=== PATIENT | female | born 1960 | race Caucasian/White ===

== ENCOUNTER 2018-12-25 06:56 | Day surgery (SDC) | payer OTHER ==
[~2018-12-25] VITALS: Ht 160 cm; Wt 70.3 kg
[2018-12-25 07:28] LABS: ANION GAP 18.3 mmol/L (8-16); CALCIUM 7.6 mg/dL (8.5-10.1); CARBON DIOXIDE 21.2 mmol/L (21.0-32.0); POTASSIUM - SERUM 5.5 mmol/L (3.5-5.1)
[2018-12-25 07:30] LABS: INR 1.02 (0.85-1.17); PROTIME 12.9 SECONDS (11.6-15.0)
[2018-12-25 07:48] LABS: BASOPHILS 0.6 % (0-2); HEMATOCRIT 28.4 % (36.0-48.0); HEMOGLOBIN 9.3 g/dL (12-16); IMMATURE GRANULOCYTES 0.3 % (0-5); LYMPHOCYTES 21.8 % (15-50); MCH 29.5 pg (26.0-34.0); MCHC 32.7 g/dL (31.0-37.0); MCV 90.2 fL (80.0-100.0); MONOCYTES 8.5 % (2-11); NEUTROPHILS 65.8 % (40-80); PLATELET COUNT 222 10x3/uL (130-400); RBC 3.15 10x6/uL (4.00-5.40); RDW 13.4 % (11.5-14.5); WBC 6.7 10x3/uL (4.8-10.8)
[2018-12-25] MEDS ORDERED: SODIUM BICARBO650 MG PO (07:59)
[2018-12-25] MEDS ORDERED: FUROSEMIDE40 MG PO (07:59)
[2018-12-25] MEDS ORDERED: AUGMENTIN 875-11 TAB PO (08:00)
[2018-12-25] MEDS ORDERED: LEXAPRO10 MG PO (08:01)
[2018-12-25] MEDS ORDERED: NOVOLOG100 UNIT/1 SC (08:02)
[2018-12-25] MEDS ORDERED: NORVASC10 MG PO (08:03)
[2018-12-25] MEDS ORDERED: CALAN SR240 MG PO (08:03)
[2018-12-25] MEDS ORDERED: COREG25 MG PO (08:04)
[2018-12-25] MEDS ORDERED: LANTUS SOL100 UNIT/1 SC (08:04)
[2018-12-25] MEDS ORDERED: VITAMIN E200 UNI1 PO (08:05)
[2018-12-25] MEDS ORDERED: FISH OIL 1,0001 CA1 PO (08:05)
[2018-12-25] MEDS ORDERED: FERROUS SULFAT325 MG PO (08:06)
[2018-12-25] MEDS ORDERED: BAYER ASPIRIN325 MG PO (08:06)
[2018-12-25] MEDS ORDERED: MELATONIN5 MG PO (08:07)
[2018-12-25] MEDS ORDERED: TYLENOL PM1 TAB PO (08:07)
[2018-12-25 08:27] VITALS: Ht 160 cm; Wt 70.3 kg
[2018-12-25] MEDS ORDERED: HYDROCODON-ACE1 EAC7 PO (15:19)
--- NOTE | 2018-12-25 17:33 | NUR ---
1730 IV REMOVED MEDICATED IM FOR NAUSEA PT TOLERATING FEW ICE CHIPS. [address] HOME
--- NOTE | 2018-12-25 18:57 | NUR ---
[address] CUEVA IN ROOM WITH PT.
--- NOTE | 2018-12-28 08:28 | OP ---
PATIENT NAME: CHARITY VOGEL MEDICAL RECORD: [id number] :58 [facility] DATE: SURGEON: BRAN CUEVA MD DATE OF OPERATION: 12/25/2018 REFERRED BY: Belle Ramachandran MD PREOPERATIVE DIAGNOSIS: Chronic kidney disease stage V and also insulin-dependent or type 1 diabetes with chronic kidney disease and essential hypertension. OPERATION PERFORMED: Laparoscopic implantation of peritoneal dialysis catheter with lysis of adhesions and open repair of umbilical hernia with mesh. Additional operation also included creation of a left brachiocephalic arterial venous fistula. SURGEON: Bran Cueva MD ANESTHESIA: General endotracheal per UNDERWEAR HEMMER. PREOPERATIVE NOTE: Ms. Vogel is a 58-year-old white female patient from [facility] with chronic kidney disease due to diabetes and hypertension. She will need to begin dialysis since she was referred to me by Dr. Belle Ramachandran for implantation of a peritoneal dialysis catheter as well as creation of a fistula in her arm. She hopes to be able to do home peritoneal dialysis in part because she lives a considerable distance from closest dialysis unit. She has had vein mapping done as an outpatient and on my examination has adequate veins in the left arm to go ahead with probably a brachiocephalic although she has an excellent vein at the wrist, but the limiting factor there may be the radial artery. She has had 2 prior C-sections and a hysterectomy. No other abdominal operations. DESCRIPTION OF PROCEDURE: Under general endotracheal anesthesia, the patient was placed in supine position, prepped and draped in sterile manner. I applied a [place] drain as a proximal venous tourniquet and used nitroglycerin topically on the arm and forearm. I examined her with Duplex ultrasound and found that the cephalic and basilic veins in the upper arm were quite good sized. Brachial artery at the level of the elbow was normal sized and appeared to be free of at least severe calcifications or atherosclerotic change. The cephalic vein at the wrist and all the way up to the antecubital space looked great. However, the radial artery was small and exhibited calcifications in the wall, so that I did not think it would be suitable to do a radiocephalic fistula in her case. I made a transverse antecubital incision and exposed the median cubital and median antebrachial veins and the cubital vein to the basilic. I mobilized the median cubital vein to the cephalic and eventually ligated it and divided it immediately proximal to the basilic draining vein. It was bevelled and flushed with heparinized saline and clamped. The brachial artery was exposed and dissected down distal to its bifurcation. There was considerable atherosclerotic plaque in the proximal radial artery and in the proximal ulnar artery and I elected to do the procedure in the brachial artery above that. The artery was controlled with Silastic loops and occluded and the artery was opened and flushed proximally and distally with heparinized saline. The vein was then OPERATIVE REPORT [id number] CHARITY VOGEL anastomosed to it in the vein to side of artery done with continuous running 7-0 Prolene. When that was completed and the occluding loops and clamps were released, excellent flow was established within the fistula and the suture line was hemostatic. There was excellent pulsatile Doppler flow in the radial artery at the wrist as well and in the cephalic vein in the upper arm. The wound was irrigated with saline and closed with interrupted inverted 3-0 Vicryl and running intracuticular 4-0 Stratafix and Dermabond glue and was dressed with Maxorb Ag, Tegaderm, and Cavilon skin prep. The patient did have a regional nerve block in addition to general anesthesia. I will plan postoperatively for her to go home in a sling, which she should wear until she regains function in the arm. Certainly, she should take it off tomorrow and not wear for very long as I walked her to maintain good range of motion in her antecubital or at her elbow joint. The patient was then completely reprepped and draped for implantation of the peritoneal catheter. I made an incision in the left upper quadrant and inserted a 5-mm 0-degree laparoscope through an XL Optiview 5-mm port and established pneumoperitoneum with carbon dioxide. I found the patient had adhesions to the anterior abdominal wall and did have a small but significant umbilical hernia, which contained omentum, which I reduced and I divided adhesions with the Harmonic scalpel. It was necessary to mobilize the sigmoid colon from adhesions to the anterior pelvic peritoneum to open up the space for access for our peritoneal catheter. I decided at that point that her hernia repair would be done in open manner hopefully in such a way that her hernia mesh would not in future be exposed to any infection from possible episodic peritonitis. I desufflated the abdomen and measured on her abdomen using the Merit flex neck classic standard adult sized dual cuff coil dialysis catheter and elected to place the catheter on the right side exiting at a site previously marked by peritoneal dialysis nurses at [facility]. I made a vertical incision and carried it down to the anterior rectus sheath. A pursestring suture of 0 Vicryl was placed and a trocar was used to penetrate the rectus sheath and rectus muscle and then created retrorectus preperitoneal tunnel to help guide the new catheter into the pelvis through that, I inserted the Merit classic flexion at catheter and placed the coil in the pelvis in a good open area. I was pleased with in positioning. The pursestring suture was tied. The catheter was tested by injecting saline and there was no significant obstruction or resistance to flow. The catheter was then placed in its subcutaneous tunnel and brought out in the right upper quadrant at the predetermined site. This was done with a Liset tunneler. The catheter was then attached to a transfer set and 1000 cc of saline were run into the abdomen briskly. The laparoscopic insufflation was discontinued and the carbon dioxide allowed to escape and after that the fluid still returned very rapidly and we recovered all that we put in. The catheter was then heparin locked, clamped and capped and the hernia repair begun. A transversely oriented smiley face incision was made, carried down to the fascia. I isolated the umbilical defect and it from the overlying umbilical skin. The hernia sac was transected and I entered the abdominal cavity. I did a blunt dissection to mobilize the peritoneum and created a preperitoneal space. I repaired the defect in the peritoneum with 3-0 Vicryl stitches and then placed a circular size small Bard Ventralex ST hernia mesh in the pocket and then closed the fascia with interrupted 2-0 Prolene, which incorporated the strap mesh attached to the circular disc. Excess strap was trimmed away and the abdomen then reinsufflated and the area of repair examined from within with the laparoscope. OPERATIVE REPORT [id number] CHARITY VOGEL I noted that there was some exposed mesh at side of tear of her peritoneum, but it was lying in good position and I did not think it is necessary to at that point do anything further. The abdominal insufflation was allowed to escape and the ports were removed and the sites infiltrated with 0.25% Marcaine and closed with inverted 3-0 Vicryl. The incision over the rectus insertion site was closed with interrupted inverted 3-0 Vicryl and running intracuticular 4-0 Stratafix. The subumbilical incision was closed in layers with interrupted inverted 3-0 Vicryl and running intracuticular 4-0 Stratafix. The incisions were sealed with glue and dressed with Maxorb Ag, Tegaderm, and Cavilon skin prep. The catheter at the exit site was dressed with a chlorhexidine Biopatch covered with a Tegaderm. The catheter was then coiled and covered with a 4 x 4 Medipore dressing. She was at that point then awakened and extubated and taken to the recovery room in stable condition. Blood loss throughout the procedure was very minimal, probably 5 cc. None was replaced intraoperatively. Sponges, instruments and needles were accounted for. No drain was used. The catheter inserted was a standard adult sized classic flex neck coil dual tip-to-cuff catheter from [place]. PLAN: For the patient will need to have her catheter flushed next week and also will need to return to see me in my office next week. Hopefully, this can be done on the same day here in [place]. After that, I may need to see her just p.r.n. and she could have her catheter flushed and further peritoneal dialysis training done in [place] or [place] depending on the particulars. I do think that because of the hernia repair and the somewhat fragile thin abdominal wall we should wait 4 weeks before beginning routine peritoneal dialysis exchanges. The patient was given a prescription for 20 tablets of Clark 5/325. She is instructed to take 1 or 2 by mouth as often every 4 hours as needed for pain. She is also given an abdominal binder and told to wear that for comfort and to help her breathe and cough more effectively. Also, she is told to use ice on the areas of the incisions and her abdomen to help reduce postoperative discomfort. To prevent constipation, she was advised to take MiraLax either daily or every other day about 1 tablespoon in large glass of water. TRANSINT:[id number] Voice Confirmation ID: [id number] DOCUMENT ID: [id number] cc: [place] [facility] [phone] [facility] [phone] BRAN CUEVA MD at 0828 CC: BELLE RAMACHANDRAN [phone] DICTATION DATE: 12/25/18 1552 [employer] [place] COMMANDING OFFICER: 12/25/18 1812 [facility] [place] 12/25/18 [place] [id number] [place] [id number]
== END 2018-12-25 18:00 | disposition home or self-care (01) ==
LOC: D.OPS 06:56
PROVIDERS: Surgery; ATTEND Internal Medicine Nephrology
DX: E10.22 Type 1 diabetes mellitus with diabetic chronic kidney disease (principal); I12.0 Hypertensive chronic kidney disease with stage 5 chronic kidney disease or end stage renal disease; N18.5 Chronic kidney disease, stage 5; K42.9 Umbilical hernia without obstruction or gangrene

== ENCOUNTER 2019-01-15 02:53 | Inpatient (IN) | payer OTHER ==
[~2019-01-15] VITALS: Ht 160 cm; Wt 76.4 kg
--- NOTE | ~2019-01-15 | HEMODYNAMI ---
PATIENT:CHARITY DONALD MEDICAL RECORD: [id number] : 56 LOCATION:D. D.2105 ADMISSION DATE: 01/15/19 Generatedon:01/16/201913:25 Patient name: CHARITY DONALD Patient #: [id number] SSN: D OB: 1960 Date of study: 01/16/2019 Page: Of Hemodynamic Procedure Report Patient Data Patient Demographics Procedure consent was obtained First Name: CHARITY Gender: Female Last Name: ODILON : 1960 Patient #: [id number] Age: 58 year(s) Race: Unknown Additional ID: [id number] Contact details [address]: [address] [place] [address] State: [place] City: [place] Zip code: [address] Past Medical History Allergies Allergen Reaction Date Comments Reported Codeine 01/16/2019 Admission Admission Data Admission Date: 01/15/2019 Admission Time: 3:35 Room #: D.2105 Procedure Procedure Types Cath Procedure Peripheral Cath Diagnostic Procedure Miscellaneous Peritoneogram Procedure Description Procedure Date Procedure Date: 01/16/2019 Procedure Start Time: 13:08 Procedure End Time: 13:25 Procedure Staff Name Function Eder Perry MD Performing Physician Esther Tadeo RT Monitor Nkechi Harry RN Nurse Kellie Luu RN Nurse Merritt Waters RT Scrub Procedure Data Cath Procedure Fluoroscopy Diagnostic fluoroscopy Total fluoroscopy Time: 3 time: 3 min min Diagnostic fluoroscopy Total fluoroscopy dose: 62 dose: 62 mGy mGy Contrast Material Contrast Material Type Amount (ml) Isovue 300 30 Hemodynamics Rest Pre Cath Intra NCS Post Cath Procedure Log Time Note 12:54:22 Merritt Waters RT (R) (CV) sent for patient. Start room use. 12:54:25 Time tracking: Regular hours (M-F 7:00 - 5:00) 12:54:35 Plan of Care:Hemodynamics will remain stable., Cardiac rhythm will remain stable., Comfort level will be maintained., Respiratory function will remain adequate., Patient/ family verbilizes understanding of procedure., Procedure tolerated without complication., Recovers from procedure without complications.. 12:54:58 Patient received from Med II to IR Alert and oriented. Tansferred to table in Supine position. 12:55:08 Signed procedure consent form obtained from patient. 12:55:14 Warm blankets applied for patient comfort. 12:55:34 Correct patient and procedure confirmed by team. 12:55:35 Full Disclosure recording started 12:56:02 H&P Date Dictated: 01/16/2019 Within 30 days and on chart.. 12:56:05 Pre-procedure instructions explained to patient. 12:56:07 Pre-op teaching completed and patient verbalized understanding. 12:58:34 Family unavailable. 12:58:42 Patient NPO since Midnight. 12:58:59 Patient allergic to Codeine 12:59:09 Is the patient allergic to Iodine/contrast media? No. 13:00:14 RIGHT ABDOMINAL area was prepped with chlora-prep and draped in sterile fashion 13:00:53 Alarms reviewed by R. N. 13:00:54 Sharps counted by scrub and verified by R.N. 13:01:03 Use device set IR Diagnostic 13:01:05 Sterile Angiographic Pack opened to sterile field. 13:01:07 Bag Decanter (2002S) opened to sterile field. 13:06:07 Physician arrived 13:06:08 --------ALL STOP TIME OUT------ 13:06:09 Final Timeout: patient, procedure, and site verified with staff and physician. All members of the team are in agreement. 13:06:25 Right abdomen site verified by team. 13:06:45 Sedation plan: None Medication:NONE 13:08:00 Procedure started. 13:11:05 GLIDE WIRE MERIT Angled 260cm ([id number]) opened to sterile field. 13:11:09 A INJECTION IS MADE INTO THE EXISTING CATHETER. 13:11:46 A glidewire is inserted into the existing catheter. 13:21:14 Procedure ended.(Physican Out) 13:22:16 Fluoroscopy time 03.00 minutes. 13:22:34 Fluoroscopy dose: 62 mGy 13:22:34 Flurop Dose total: 62 13:22:45 Contrast amount:Isovue 300 30ml. 13:22:50 Sharps counted by scrub and verified. 13:23:25 Post Abdominal area:unchanged 13:23:33 Post procedure instruction explained to patient.Patient verbalizes understanding. 13:23:35 Patient needs reinforcement of post procedure teaching. 13:23:38 Procedure and supply charges have been captured, reviewed, submitted and are correct. 13:24:20 See physician's report for complete and final results. 13:24:32 Report given to [facility]. 13:24:42 Patient transfered to [facility] II with Bed. 13:24:59 Procedure ended. 13:24:59 Full Disclosure recording stopped Device Usage Item Name Manufacture Quantity Catalog Number Hospital Part Current M inimal Lot# / Charge Number Stock Stock Serial# Code Sterile Cardinal 1 [id number] Angiographic Health Pack Bag Decanter Microtek 1 [id number] () [employer] Inc[employer] GLIDE WIRE Merit 1 [id number] [facility] Medical 260cm ([id number]) Signature Audit [place] Stage Time Signature Unsigned Intra-Procedure 01/16/2019 Esther 1:25:31 PM Carlyle RT(R) (CV) [facility] [address] [place] [address]
[~2019-01-15 02:53] MED LIST: AUGMENTIN 875-11 TAB PO; BAYER ASPIRIN325 MG PO; CALAN SR240 MG PO; COREG25 MG PO; FERROUS SULFAT325 MG PO; FISH OIL 1,0001 CA1 PO; FUROSEMIDE40 MG PO; HYDROCODON-ACE1 EAC7 PO; LANTUS SOL100 UNIT/1 SC; LEXAPRO10 MG PO; MELATONIN5 MG PO; NORVASC10 MG PO; NOVOLOG100 UNIT/1 SC; SODIUM BICARBO650 MG PO; TYLENOL PM1 TAB PO; VITAMIN E200 UNI1 PO
[2019-01-15 06:21] VITALS: BP 170/66
[2019-01-15 06:52] LABS: BASOPHILS 0.1 % (0-2); EOSINOPHILS 0 % (0-7); HEMATOCRIT 26.9 % (36.0-48.0); HEMOGLOBIN 8.6 g/dL (12-16); IMMATURE GRANULOCYTES 0.2 % (0-5); LYMPHOCYTES 6.8 % (15-50); MCH 30.3 pg (26.0-34.0); MCV 94.7 fL (80.0-100.0); MEAN PLATELET VOLUME 11.3 fL (7.4-10.4); MONOCYTES 10.4 % (2-11); NEUTROPHILS 82.5 % (40-80); PLATELET COUNT 200 10x3/uL (130-400); RBC 2.84 10x6/uL (4.00-5.40); RDW 14.8 % (11.5-14.5); WBC 9.7 10x3/uL (4.8-10.8)
[2019-01-15 07:04] LABS: ANION GAP 25.2 mmol/L (8-16); CALCIUM 7.9 mg/dL (8.5-10.1); CARBON DIOXIDE 16.9 mmol/L (21.0-32.0); CREATININE - SERUM 5.1 mg/dL (0.6-1.3); MAGNESIUM - SERUM 2.2 mg/dL (1.8-2.4)
[2019-01-15 07:13] LABS: POTASSIUM - SERUM 6.1 mmol/L (3.5-5.1)
[2019-01-15 08:00] VITALS: BP 105/38
[2019-01-15 08:50] LABS: KETONE - SERUM SMALL mg/dL (NEGATIVE)
[2019-01-15 11:02] VITALS: Ht 160 cm; Wt 76.4 kg
[2019-01-15 12:04] VITALS: BP 117/44
--- NOTE | 2019-01-15 16:15 | NUR ---
IN OR FOR HEMASPLIT PLACEMENT. WILL CONT. PLAN OF CARE.
[2019-01-15 16:48] LABS: POTASSIUM - SERUM 5.1 mmol/L (3.5-5.1)
[2019-01-15 17:18] LABS: CALCIUM 7.7 mg/dL (8.5-10.1); CREATININE - SERUM 5.2 mg/dL (0.6-1.3)
[2019-01-15 17:19] LABS: ANION GAP 17.1 mmol/L (8-16); CARBON DIOXIDE 22.9 mmol/L (21.0-32.0)
--- NOTE | 2019-01-15 19:30 | NUR ---
RESTING IN BED, C/O SEVER ABD PAIN, HAS PD IN PLACE STATES WILL NOT DRAIN THAT IS WHY HERE AND HAD HEMISPLIT PLACED TODAY FOR DIALYSIS, PAIN MED GIVEN ORDER, HEMISPLIT NOTED TO LEFT CHEST DRESSING C/D/I, SEE SHIFT ASSESSMENT, CALL LIGHT IN REACH FAMILY AT BEDSIDE
--- NOTE | 2019-01-15 20:00 | NUR ---
SENT TO DIALYSIS VIA BED, ACCUCHECK PRIOR TO TRANFER 69 APPLE JUICE X 2 WITH 2 SUGAR GIVEN, WILL MONITOR
--- NOTE | 2019-01-15 21:10 | NUR ---
BLOOD SUGAR RECHECKED IN DIALYSIS 104, ANASTASIA AND DANIEL MCKENZIE LEFT WITH PT
--- NOTE | 2019-01-15 22:30 | NUR ---
BACK TO ROOM, APPEARS DROWSEY , AROUSES EASILY, O2 CHECKED BY RT O2 SAT AT 88%, PLACED ON 2 L O2 PER N/C, CHECKED BLOOD SUGAR PER HIS GLUCOMETER 174, PT HAS REFUSED PM SCHEDULED INSULIN
[2019-01-16] VITALS (11 sets, daily range): BP systolic 129–157; BP diastolic 49–70
[2019-01-16 05:44] LABS: ALBUMIN 2.2 g/dL (3.4-5.0); ANION GAP 19.5 mmol/L (8-16); BILIRUBIN - TOTAL 0.46 mg/dL (0.2-1.3); CALCIUM 7.6 mg/dL (8.5-10.1); CARBON DIOXIDE 22.7 mmol/L (21.0-32.0); PHOSPHOROUS 6.4 mg/dL (2.5-4.9); POTASSIUM - SERUM 5.2 mmol/L (3.5-5.1); PROTEIN - SERUM 5.8 g/dL (6.4-8.2)
[2019-01-16 05:46] LABS: BASOPHILS 0.3 % (0-2); EOSINOPHILS 0.1 % (0-7); HEMATOCRIT 25.5 % (36.0-48.0); HEMOGLOBIN 8.1 g/dL (12-16); IMMATURE GRANULOCYTES 0.1 % (0-5); LYMPHOCYTES 5.3 % (15-50); MCH 30.1 pg (26.0-34.0); MCHC 31.8 g/dL (31.0-37.0); MCV 94.8 fL (80.0-100.0); MEAN PLATELET VOLUME 11.7 fL (7.4-10.4); MONOCYTES 9.6 % (2-11); NEUTROPHILS 84.6 % (40-80); PLATELET COUNT 211 10x3/uL (130-400); RBC 2.69 10x6/uL (4.00-5.40); RDW 15.2 % (11.5-14.5)
[2019-01-16 08:40] LABS: INR 1.31 (0.85-1.17); PROTIME 15.7 SECONDS (11.6-15.0)
[2019-01-16 08:41] LABS: APTT 40.7 SECONDS (22.8-39.4)
--- NOTE | 2019-01-16 10:06 | OP ---
PATIENT NAME: CHARITY VOGEL MEDICAL RECORD: [id number] :56 LOCATION:D. D.2105 ADMISSION DATE:01/15/19 SURGEON: BRAN CUEVA MD DATE OF OPERATION: 01/15/2019 REFERRED BY: Ken Almanza MD PREOPERATIVE DIAGNOSES: End-stage renal disease and hyperkalemia, needs to start dialysis, immature arteriovenous fistula, nonfunctioning PD catheter, diabetes and hypertension, abdominal pain, nausea and vomiting. POSTOPERATIVE DIAGNOSES: End-stage renal disease and hyperkalemia, needs to start dialysis, immature arteriovenous fistula, nonfunctioning PD catheter, diabetes and hypertension, abdominal pain, nausea and vomiting. OPERATION PERFORMED: Ultrasound and fluoroscopic-guided insertion of a right internal jugular tunneled HemoSplit dialysis catheter under local anesthesia with monitoring per PORTABLE MACHINE CUTTER. PREOPERATIVE NOTE: Ms. Vogel is a 58-year-old white female patient from [facility] who recently had a left arm AV fistula constructed and a PD catheter inserted. She has not yet started peritoneal dialysis, but has developed abdominal pain, nausea and vomiting and has not been able to drain her peritoneal catheter since she was flushed with 800 cc yesterday. She has not yet begun actual PD exchanges or training. I was asked to place a catheter for dialysis as her potassium was 6.1 this morning and we will do that now. Under monitoring in supine position, she was prepped and draped in a sterile manner. Duplex ultrasound was utilized to locate the right internal jugular vein. It was noted to be free of thrombus or any other sonographic visible abnormality. It was fully compressible and of normal caliber. Skin and subcutaneous tissues were anesthetized with 1% lidocaine plain and an incision made at the base of the neck there on the right. Through that incision, a micropuncture needle and guidewire were inserted under continuous ultrasound guidance into the right internal jugular vein. Images were retained and hard copy prints made, which are placed in the patient's chart for permanent record. Under fluoroscopy, a guidewire was inserted and advanced into the right atrium and dilators were passed over the wire and lastly a dilator and peel-away introducer sheath. I chose a 19-cm HemoSplit. It was then inserted through a stab incision beneath the clavicle and pulled through a subcutaneous tunnel up to the cervical incision and inserted through the peel-away sheath and the sheath removed. Under fluoroscopy, the catheter tip came to rest deep in the right atrium in good position. The catheter was accessed and aspirated, free return of blood per each side was confirmed. Then, 5 cc of blood was drawn for a stat potassium determination. The catheter was then flushed with saline and then heparin locked, clamped and capped. The cervical wound was closed with a single interrupted inverted 3-0 Vicryl and the catheter itself was sutured to the skin with 2-0 Prolene. The cervical incision was sealed with Dermabond glue and dressed with Maxorb Ag, Tegaderm, and Cavilon skin prep. The catheter entry site was dressed with a chlorhexidine Biopatch and a standard CVL dressing. The patient was then taken to the recovery room in stable condition. There was no blood loss during the procedure. Sponges, instruments, and needles were accounted for. No specimen was submitted for histopathology. OPERATIVE REPORT [id number] ODILONCHARITY We will notify nephrology. The patient has her dialysis catheter and is now able to have hemodialysis this evening. I believe that she should have a catheterogram or peritoneogram performed in the morning to better demonstrate the problem with obstruction of her catheter. Perhaps the catheter function could even be restored with guidewire manipulation in radiology. If not, she may need a laparoscopic revision of her procedure in the near future. She will continue on her antibiotics for presumed peritonitis. TRANSINT:[id number] Voice Confirmation ID: [id number] DOCUMENT ID: [id number] BRAN CUEVA MD at 1006 CC: KEN ALMANZA MD [id number] DICTATION DATE: 01/15/19 170 CATALOG LIBRARIAN: 01/16/[address] [facility] [address] [place] [address]
[2019-01-16 18:47] LABS: BASOPHILS 0.3 % (0-2); EOSINOPHILS 1.9 % (0-7); HEMATOCRIT 26.5 % (36.0-48.0); HEMOGLOBIN 8.4 g/dL (12-16); IMMATURE GRANULOCYTES 0.1 % (0-5); LYMPHOCYTES 5.8 % (15-50); MCH 29.9 pg (26.0-34.0); MCHC 31.7 g/dL (31.0-37.0); MCV 94.3 fL (80.0-100.0); MEAN PLATELET VOLUME 11.2 fL (7.4-10.4); MONOCYTES 10.9 % (2-11); PLATELET COUNT 197 10x3/uL (130-400); RBC 2.81 10x6/uL (4.00-5.40); WBC 7.4 10x3/uL (4.8-10.8)
--- NOTE | 2019-01-16 18:47 | NUR ---
RECIEVED PT TO ROOM 2309 FROM MED SURG 2. PT DENIES ANY NEEDS OR DISCOMFORT AT THIS TIME. VSS. WILL CONT TO MONITOR.
--- NOTE | 2019-01-16 19:00 | NUR ---
PT REPORT RECEIVED FROM DAY SHIFT NURSE. PT RESTING IN BED. VSS. WILL CONTINUE TO MONITOR
[2019-01-16 19:15] LABS: ALBUMIN 2.4 g/dL (3.4-5.0); ANION GAP 15.7 mmol/L (8-16); BILIRUBIN - TOTAL 0.36 mg/dL (0.2-1.3); CALCIUM 7.7 mg/dL (8.5-10.1); CARBON DIOXIDE 25.1 mmol/L (21.0-32.0); CREATININE - SERUM 4.6 mg/dL (0.6-1.3); POTASSIUM - SERUM 4.8 mmol/L (3.5-5.1); PROTEIN - SERUM 5.6 g/dL (6.4-8.2)
--- NOTE | 2019-01-16 19:30 | NUR ---
DIALYSIS AT BEDSIDE. PREPARING TO BEGIN. WILL CONTINUE TO MONITOR
[2019-01-16] MEDS ORDERED: AVAPRO300 MG PO (19:50)
--- NOTE | 2019-01-16 21:15 | NUR ---
DIALYSIS COMPLETE. PT COMPLAINING OF NAUSEA. PRN DOSE OF ZOFRAN PULLED WAITING FOR DIALYSIS TO UNHOOK FROM PATIENT BEFORE GIVING. VSS. WILL CONTINUE TO MONITOR. INSULIN PEN IS NOT AVAILABLE CURRENTLY. CALLED MED 2 THEY DID NOT HAVE PEN. CALLED PHARMACY AND THEY WILL BRING A PEN UP.
--- NOTE | 2019-01-16 21:48 | NUR ---
PT REFUSED LANTIS INSULIN. BLOOD SUGAR WAS 128 WHEN LAST CHECKED.
--- NOTE | 2019-01-16 23:00 | NUR ---
PT REASSESSMENT COMPLETED. PT RESTING IN BED. VSS. WILL CONTINUE TO MONITOR
[2019-01-17] VITALS (17 sets, daily range): BP systolic 120–163; BP diastolic 51–75
--- NOTE | 2019-01-17 01:00 | NUR ---
PT RESTING IN BED. LIGHTS OFF IN ROOM. NO SIGNS OF DISTRESS NOTED. VSS. WILL CONTINUE TO MONITOR
[2019-01-17 01:11] LABS: COLOR YELLOW (YELLOW)
[2019-01-17 01:12] LABS: APPEARANCE CLOUDY (CLEAR); BILIRUBIN NEGATIVE (NEGATIVE); GLUCOSE NEGATIVE (NEGATIVE); KETONE NEGATIVE (NEGATIVE); NITRITE NEGATIVE (NEGATIVE); PROTEIN 3+ mg/dL (NEGATIVE); UROBILINOGEN NORMAL (NORMAL)
[2019-01-17 01:14] LABS: AMORPHOUS SEDIMENT >1+ /lpf (NONE SEEN); BACTERIA MODERATE /hpf (NEGATIVE); EPITHELIAL CELLS 0-5 /hpf (0-5); GRANULAR CAST OCC /lpf (NONE SEEN); RED CELLS - URINE 0-5 /hpf (0-5); WHITE CELLS - URINE 0-5 /hpf (NEGATIVE)
--- NOTE | 2019-01-17 03:00 | NUR ---
PT RESTING IN BED. REASSESSMENT COMPLETED. PT TOLERATED WELL. NO VISIBLE SIGNS OF DISTRESS NOTED. VSS. WILL CONTINUE TO MONITOR
[2019-01-17 04:40] LABS: BASOPHILS 0.3 % (0-2); EOSINOPHILS 1.1 % (0-7); HEMATOCRIT 25.6 % (36.0-48.0); HEMOGLOBIN 8.2 g/dL (12-16); IMMATURE GRANULOCYTES 0.1 % (0-5); LYMPHOCYTES 7.2 % (15-50); MCH 29.9 pg (26.0-34.0); MCV 93.4 fL (80.0-100.0); MEAN PLATELET VOLUME 11.1 fL (7.4-10.4); MONOCYTES 7.9 % (2-11); NEUTROPHILS 83.4 % (40-80); PLATELET COUNT 187 10x3/uL (130-400); RBC 2.74 10x6/uL (4.00-5.40); RDW 14.9 % (11.5-14.5); WBC 7.1 10x3/uL (4.8-10.8)
--- NOTE | 2019-01-17 05:00 | NUR ---
PT RESTING IN BED. VSS. NO COMPLAINTS NOTED AT THIS TIME. WILL CONTINUE TO MONITOR
[2019-01-17 05:07] LABS: ALBUMIN 2.1 g/dL (3.4-5.0); BILIRUBIN - TOTAL 0.41 mg/dL (0.2-1.3); CALCIUM 7.7 mg/dL (8.5-10.1); CARBON DIOXIDE 27.7 mmol/L (21.0-32.0); CREATININE - SERUM 3.8 mg/dL (0.6-1.3); PROTEIN - SERUM 5.9 g/dL (6.4-8.2)
[2019-01-17 05:15] LABS: ANION GAP 14.2 mmol/L (8-16); POTASSIUM - SERUM 3.9 mmol/L (3.5-5.1)
--- NOTE | 2019-01-17 07:00 | NUR ---
SHIFT ASSESSMENT COMPLETED, PT CARE ASSUMED. MONITORS ON AND WORKING, VITALS STABLE. PT AWAKE AND ALERT, NO SIGNS/SYMPTOMS OF PAIN OR DISCOMFORT NOTED AT THIS TIME, CALL LIGHT WITHIN REACH, WILL CONTINUE TO OBSERVE.
[2019-01-17 07:14] LABS: HEPATITIS C ANTIBODY <0.1 S/CO RAT (0.0-0.9)
--- NOTE | 2019-01-17 09:00 | NUR ---
PT UP TO BEDSIDE COMMODE WITH MINIMAL ASSIST, PT AWAKE AND ALERT, VITAL SIGNS STABLE. FAMILY AT BEDSIDE, UPDATE PROVIDED. NO SIGNS/SYMPTOMS OF PAIN OR DISCOMFORT NOTED AT THIS TIME. CALL LIGHT WITHIN REACH, WILL CONTINUE TO OBSERVE.
[2019-01-17 11:10] LABS: ALP - ISO (ALP) 46 IU/L (39-117); ALP - ISO (BONE) FRACTION 21 % (14-68); ALP - ISO (LIVER) FRACTION 79 % (18-85); ALP - ISO(INTESTINAL) FRACTION 0 % (0-18)
--- NOTE | 2019-01-17 11:15 | NUR ---
REASSESSMENT COMPLETE PER FLOW SHEET. VSS. NO NEW CHANGES WILL CONTINUE TO MONITOR
--- NOTE | 2019-01-17 13:00 | NUR ---
PT TURNED AND REPOSITIONED FOR COMFORT, MONITORS ON AND WORKING, VITALS STABLE. CALL LIGHT WITHIN REACH. WILL CONTINUE TO OBSERVE.
--- NOTE | 2019-01-17 15:00 | NUR ---
REC'D ORDERS TO TRANSFER PT TO FLOOR WHEN ROOM BECOMES AVAILABLE. NO CHANGES, PT CONTINUES TO BE AWAKE AND ALERT, NO SIGNS/SYMPTOMS OF PAIN OR DISCOMFORT NOTED. CALL LIGHT WITHIN REACH, WILL CONTINUE TO OBSERVE.
--- NOTE | 2019-01-17 16:30 | NUR ---
REC'D ROOM FOR PT TO TRANSFER TO ON FLOOR. CALLED REPORT TO RECEIVING NURSE.
--- NOTE | 2019-01-17 19:10 | NUR ---
BEDSIDE REPORT RECEIVED FROM DAY SHIFT, PT CARE ASSUMED. INTRODUCED SELF AND WROTE NAME ON BOARD. PT LYING IN BED VISITING WITH FAMILY, AAOX4. DENIES ANY NEEDS AT THIS TIME. BED IN LOWEST POSITION, SR X2, CALL LIGHT WITHIN REACH. WILL CONTINUE TO MONITOR.
--- NOTE | 2019-01-17 20:00 | NUR ---
SPOKE WITH DR. CUEVA REGARDING LAB RESULTS FROM PD CATHETER, INSTRUCTED TO CALL RENAL. SPOKE WTIH DR. DUNCAN REGARDING RESULTS, RECEIVED TELEPHONE ORDER FOR ROCEPHIN 1G IV Q24 HOURS.
--- NOTE | 2019-01-17 20:06 | NUR ---
SPOKE WITH DR. CUEVA REGARDING LAB RESULTS, ADVISED ME TO CALL NEPHROLOGY. SPOKE WITH DR. DUNCAN, RECEIVED TELEPHONE ORDER FOR ROCEPHIN 1G VIA IV Q24 HOURS. REVIEWED EMAR, SAW PT HAD ORDERS FOR FORTAZ AND HAD RECEIVED VANCOMYCIN EARLIER IN THE DAY. DISCUSSED SITUATION WITH CHARGE NURSE, SID. HE SPOKE WITH NAHEED BAILEY, SHE SAID NOT TO GIVE ROCEPHIN SINCE PT WAS ALREADY RECEIVING FORTAZ.
[2019-01-17 20:17] LABS: NEUT - BF 96 %
--- NOTE | 2019-01-17 20:18 | MORECARE ---
CASE MANAGEMENT DISCHARGE SUMMARY PATIENT: CHARITY DONALD UNIT: [id number] ADM DATE: 01/15/19 AGE: 58 : 56 SEX: F ROOM/BED: D.2106 AUTHOR: EYAL MERINO PHYSICIAN: REFERRING PHYSICIAN: KEN LALA MD DATE OF SERVICE: 01/17/19 Discharge Plan Patient Name: CHARITY DONALD Facility: [facility]:[place] : 1960 Planned Disposition: Home Anticipated Discharge Date: Discharge Date: Expected LOS: Initial Reviewer: [email or web address] Initial Review Date: 01/15/2019 Generated: 01/17/19 9:18 pm DCP- Discharge Planning Updated by [id number]: Jo Junior on 01/15/19 2:[address] I HAVE SPOKE WITH ESTRELLA GODWIN, CLINICAL LIASON WITH [facility] ABOUT THE PATIENT POSSIBLY CHANGING FROM PD TO HD. SHE HAS CONFIRMED THAT THE PATIENT WILL REQUIRE THE HEPATITIS LABS, ORDERS OBTAINED AND ENTERED. I WILL CONFIRM WHEN I KNOW THAT THE PATIENT WILL FOR SURE NEED PLACEMENT. SHE WILL REACH OUT TO [facility] TO GIVE THEM A HEADS UP. DCPIA - Discharge Planning Initial Assessment Updated by [email or web address]: Carla Mathias on 01/17/19 8:16 pm * Is the patient Alert and Oriented? Yes * How many steps to enter\exit or inside your home? * PCP JAYRO DEXTER * Pharm[facility] * Preadmission Environment Home with Family * ADLs Independent * Equipment Cane * List name and contact numbers for known caregivers / representatives who currently or will assist patient after discharge: DEMETRIUS DONALD - SPOUSE- [phone] * Verbal permission to speak to the caregivers and representatives has been obtained from the patient. Yes * Community resources currently utilized None * Additional services required to return to the preadmission environment? No * Can the patient safely return to the preadmission environment? Yes * Has this patient been hospitalized within the prior 30 days at any hospital? No Patient Name: CHARITY DONALD Page 04911 at 2018 All edits/amendments must be made on the electronic document DICTATION DATE: 01/17/19 2018 PRODUCT DEVELOPMENT CHEMIST: MYRON 01/17/19 2018 RPT#: [id number] DC DATE: STATUS: ADM IN [facility] [address] [place] [address] END OF REPORT
--- NOTE | 2019-01-17 20:25 | MORECARE ---
CASE MANAGEMENT DISCHARGE SUMMARY PATIENT: CHARITY DONALD UNIT: [id number] ADM DATE: 01/15/19 AGE: 58 : 56 SEX: F ROOM/BED: D.0402 AUTHOR: EYAL MERINO PHYSICIAN: REFERRING PHYSICIAN: KEN ALMANZA MD DATE OF SERVICE: 01/17/19 Discharge Plan Patient Name: CHARITY DONALD Facility: [facility]:[place] : 1960 Planned Disposition: Home Anticipated Discharge Date: Discharge Date: Expected LOS: Initial Reviewer: [email or web address] Initial Review Date: 01/15/2019 Generated: 01/17/19 9:24 pm Comments DCP- Discharge Planning Updated by [email or web address]: Carla Mathias on 01/17/19 7:[address] Patient Name: CHARITY DONALD Admission Status: ER Accout number: [id number] Admission Date: 01-15-2019 : 1960 Admission Diagnosis: Attending: Ken Almanza Current LOS: 2 Anticipated DC Date: Planned Disposition: Home Primary Insurance: [facility] Discharge Planning Comments: CM met with patient to complete initial dc planning assessment. CM educated patient on the CM role and verbal consent given by patient to complete assessment. Patient lives at home with her and daughter where she is independent with her care. At discharge patient plans to return home and feels this is a safe discharge. CM discussed availability of home health, rehab services, and medical equipment. Her family will drive her home. Patient is new to dialysis and will start PD once abd is healed. Patient will need outpatient HD set up in [place]. Patient denied known discharge needs at this time. CM will continue to follow and will assist as needed with dc plans/needs. Sausage Grinder: Carla Mathias DCP- Discharge Planning Updated by [email or web address]: Jo Junior on 01/15/19 2:[address] I HAVE SPOKE WITH ESTRELLA GODWIN, CLINICAL LIASON WITH [facility] ABOUT THE PATIENT POSSIBLY CHANGING FROM PD TO HD. SHE HAS CONFIRMED THAT THE PATIENT WILL REQUIRE THE HEPATITIS LABS, ORDERS OBTAINED AND ENTERED. I WILL CONFIRM WHEN I KNOW THAT THE PATIENT WILL FOR SURE NEED PLACEMENT. SHE WILL REACH OUT TO [facility] TO GIVE THEM A HEADS UP. DCPIA - Discharge Planning Initial Assessment Updated by [email or web address]: Carla Mathias on 01/17/19 8:16 pm * Is the patient Alert and Oriented? Yes * How many steps to enter\exit or inside your home? * PCP JAYRO DEXTER * [facility] * Preadmission Environment Home with Family * ADLs Independent * Equipment Cane * List name and contact numbers for known caregivers / representatives who currently or will assist patient after discharge: DEMETRIUS DONALD - SPOUSE- [phone] * Verbal permission to speak to the caregivers and representatives has been obtained from the patient. Yes * Community resources currently utilized None * Additional services required to return to the preadmission environment? No * Can the patient safely return to the preadmission environment? Yes * Has this patient been hospitalized within the prior 30 days at any hospital? No Last DP export: 01/17/19 7:18 p Patient Name: CHARITY DONALD Page 72417 at 2025 All edits/amendments must be made on the electronic document DICTATION DATE: 01/17/192023 LOCKSTITCH BACK MAKER: MYRON 01/17/192023 RPT#: [id number] DC DATE: STATUS: ADM IN [facility] [address] [place] [address] END OF REPORT
[2019-01-18] VITALS: BP 146/52
[2019-01-18 04:30] VITALS: BP 133/54
[2019-01-18 06:27] LABS: BASOPHILS 0.2 % (0-2); EOSINOPHILS 1.7 % (0-7); HEMATOCRIT 24.4 % (36.0-48.0); IMMATURE GRANULOCYTES 0.2 % (0-5); LYMPHOCYTES 7.1 % (15-50); MCH 29.5 pg (26.0-34.0); MCHC 30.7 g/dL (31.0-37.0); MEAN PLATELET VOLUME 11.4 fL (7.4-10.4); MONOCYTES 9.2 % (2-11); NEUTROPHILS 81.6 % (40-80); PLATELET COUNT 199 10x3/uL (130-400); RBC 2.54 10x6/uL (4.00-5.40); RDW 14.8 % (11.5-14.5)
[2019-01-18 06:36] LABS: ALBUMIN 1.9 g/dL (3.4-5.0); ANION GAP 13.1 mmol/L (8-16); BILIRUBIN - TOTAL 0.3 mg/dL (0.2-1.3); CALCIUM 7.8 mg/dL (8.5-10.1); CARBON DIOXIDE 27.9 mmol/L (21.0-32.0); PHOSPHOROUS 5.8 mg/dL (2.5-4.9); PROTEIN - SERUM 5.3 g/dL (6.4-8.2); VANCOMYCIN - RANDOM 19.1 ug/mL (10.0-20.0)
[2019-01-18 06:37] LABS: CREATININE - SERUM 4.8 mg/dL (0.6-1.3)
[2019-01-18 06:42] LABS: HEMOGLOBIN 7.5 g/dL (12-16); MCV 96.1 fL (80.0-100.0)
[2019-01-18 08:20] VITALS: BP 139/47
--- NOTE | 2019-01-18 11:40 | NUR ---
PT STATES SHE DOES NOT WANT TO DO PD TODAY AND THAT HER BELLY HAS BEEN THROUGH TOO MUCH TRAUMA. SHE STATES SHE WOULD RATHER DO HD TODAY. SPOKE WITH VAUGHN FARFAN AND SHE STATES SHE CAN DO HD TODAY BUT WILL NEED TO DO PD TOMORROW. STATED THIS TO PT AND SHE VERBALIZED UNDERSTANDING.
[2019-01-18 12:13] VITALS: BP 154/46
--- NOTE | 2019-01-18 12:34 | NUR ---
Nutrition Follow-up: Pt reports appetite improving. Ate ~50% of breakfast this AM. No N/V. Diet: Diabetic Wt: 161# Last BM: 01/18 (loose) Labs noted: Glu 99, K+ 4.0, PO4 5.8, Ca 7.8, Alb 1.9 Meds noted: Humulin Change to renal ADA diet 2/2 ESRD on dialysis. [place] food preferences within diet restrictions. MD may consider PO4 binder 2/[address] following.
[2019-01-18 16:14] VITALS: BP 133/46
--- NOTE | 2019-01-18 17:30 | NUR ---
PT TAKEN TO HD VIA WC.
--- NOTE | 2019-01-18 19:15 | NUR ---
PT OFF FLOOR AT DIALYSIS WHEN THIS NURSE CAME ON SHIFT
[2019-01-18 20:00] VITALS: BP 117/54
--- NOTE | 2019-01-18 20:50 | NUR ---
PT RETURNED FROM DIALYSIS. VSS. FSBS 145. FAMILY IN ROOM. PROVIDED WITH HAIR CARE PRODUCTS PER REQUEST. RIGHT CHEST JAZIEL SPLIT THAT IS PATENT. RIGHT HAND SALINE LOCKED. PT ALERT AND ORIENTED. DENIES NEEDS AT THIS TIME. CALL LIGHT IN REACH. CPOC.
[2019-01-19] VITALS: BP 153/55
--- NOTE | 2019-01-19 00:58 | NUR ---
PT REFUSES FULL DOSES OF INSULIN. PROVIDED EDUCATION. DENIES. FSBS 188. ORDERED SLIDING SCALE 8 UNITS, PT ALLOWED 4.
--- NOTE | 2019-01-19 02:01 | NUR ---
I have reviewed this patient and I concur with the Shift Assessment completed by the Licensed Practical Nurse today this shift.
[2019-01-19 04:00] VITALS: BP 147/60
[2019-01-19 05:13] LABS: BASOPHILS 0.3 % (0-2); EOSINOPHILS 3.5 % (0-7); HEMOGLOBIN 8.1 g/dL (12-16); IMMATURE GRANULOCYTES 0.4 % (0-5); LYMPHOCYTES 10.1 % (15-50); MCH 29.8 pg (26.0-34.0); MCHC 31.2 g/dL (31.0-37.0); MCV 95.6 fL (80.0-100.0); MEAN PLATELET VOLUME 11.5 fL (7.4-10.4); MONOCYTES 10.9 % (2-11); NEUTROPHILS 74.8 % (40-80); PLATELET COUNT 216 10x3/uL (130-400); RBC 2.72 10x6/uL (4.00-5.40); RDW 14.8 % (11.5-14.5); WBC 7.5 10x3/uL (4.8-10.8)
[2019-01-19 05:46] LABS: ALBUMIN 2.1 g/dL (3.4-5.0); ANION GAP 13.3 mmol/L (8-16); BILIRUBIN - TOTAL 0.32 mg/dL (0.2-1.3); CALCIUM 7.4 mg/dL (8.5-10.1); CREATININE - SERUM 3.9 mg/dL (0.6-1.3); POTASSIUM - SERUM 4.3 mmol/L (3.5-5.1); PROTEIN - SERUM 5.2 g/dL (6.4-8.2); VANCOMYCIN - RANDOM 20.8 ug/mL (10.0-20.0)
[2019-01-19 09:17] VITALS: BP 152/58
--- NOTE | 2019-01-19 12:25 | NUR ---
DISCUSSED THE PERITNEAL DIALYSIS WITH THE PATIENT. SHE AGREES TO THE TREATMENT TODAY. FLUID IS ON THE WARMING PAD.
[2019-01-19 12:29] VITALS: BP 142/50
--- NOTE | 2019-01-19 13:57 | NUR ---
CALLED VAUGHN AND LET HER KNOW THAT THE PERITENEAL DIALYSIS WOULD NOT INFUSE.
--- NOTE | 2019-01-19 14:14 | NUR ---
PATIENT IS RESTING ON HER BACK IN BED. REPORTS THAT SHE DOES NOT WANT TO CONTINUE TO ATTEMPT DIALYSIS. SHE STATES THAT IT IS VERY PAINFUL.N PATIETN IS NAUSEATED, AND TREATED WITH ZOFRAN ORDERED PRN.
[2019-01-19 16:52] VITALS: BP 141/45
--- NOTE | 2019-01-19 18:19 | NUR ---
FLUSHED WITH 2 ,10ML SYRINGE OF STERILE N/S. 20 ML N/S WENT IN. ATTEMPTED TO GIVE 500ML OF THE PERITNEAL FLUID ORDERED. 80 ML WENT IN . THERE WAS 1000ML OF HEPARIN IN THE 500ML SOLUTION. SO A TOTAL OF 100ML WENT IN. WROTE ON THE SHEET. THE PATIENT REFUSED TO LET ME GIVE ANY MORE FLUID.
--- NOTE | 2019-01-19 19:10 | NUR ---
EVENING ROUGENESIS COMPCARLOSE, PT SITTING UP IN BED. NO SIGNS OF DISTRESS. PT DENIES ANY PAIN AT THIS TIME. AAOX4, VSS. CL IN REACH, BED IN LOWEST POSITION. CONT WITH POC.
--- NOTE | 2019-01-19 19:40 | NUR ---
PER READING DR NOTES, CALLED [facility]ONES [facility] FOR CLARIFICATION ON PD CATH CAUSING PT PAIN, AND NOT INSTILLING ANY FLUID. PER LAMBERT JONES APN, HOLD PD UNTIL FURTHER NOTICE.
[2019-01-19 20:00] VITALS: BP 156/59
[2019-01-20] VITALS: BP 140/58
[2019-01-20 04:00] VITALS: BP 146/54
[2019-01-20 04:40] LABS: BASOPHILS 0.1 % (0-2); HEMATOCRIT 24.2 % (36.0-48.0); HEMOGLOBIN 7.6 g/dL (12-16); IMMATURE GRANULOCYTES 0.8 % (0-5); LYMPHOCYTES 8.6 % (15-50); MCH 29.8 pg (26.0-34.0); MCHC 31.4 g/dL (31.0-37.0); MCV 94.9 fL (80.0-100.0); MEAN PLATELET VOLUME 10.5 fL (7.4-10.4); MONOCYTES 10.4 % (2-11); NEUTROPHILS 78.1 % (40-80); PLATELET COUNT 209 10x3/uL (130-400); RBC 2.55 10x6/uL (4.00-5.40); RDW 14.7 % (11.5-14.5); WBC 7.4 10x3/uL (4.8-10.8)
[2019-01-20 04:59] LABS: ALBUMIN 1.8 g/dL (3.4-5.0); ANION GAP 13.6 mmol/L (8-16); BILIRUBIN - TOTAL 0.29 mg/dL (0.2-1.3); CALCIUM 7.1 mg/dL (8.5-10.1); CARBON DIOXIDE 28.2 mmol/L (21.0-32.0); PHOSPHOROUS 5.5 mg/dL (2.5-4.9); POTASSIUM - SERUM 3.8 mmol/L (3.5-5.1); PROTEIN - SERUM 4.8 g/dL (6.4-8.2)
[2019-01-20 05:02] LABS: CREATININE - SERUM 4.9 mg/dL (0.6-1.3)
[2019-01-20 08:36] VITALS: BP 124/52
[2019-01-20 12:17] VITALS: BP 161/62
[2019-01-20 16:45] VITALS: BP 152/53
--- NOTE | 2019-01-20 17:14 | NUR ---
ALERT AND ORIENTED X4. UP AMBULATING IN [place] ACCOMPANIED BY FAMILY. DENIES SOB. DENIES PAIN. DENIES ANY NEEDS AT THIS TIME. CONTINUE PLAN OF CARE AND SAFETY PRECAUTIONS.
[2019-01-20 20:00] VITALS: BP 144/62
--- NOTE | 2019-01-20 23:49 | NUR ---
PATIENT SITTING UP IN BED. FAMILY AT BEDSIDE. NO COMPLAINTS AT THIS TIME. NO DISTRESS NOTED.
[2019-01-21] VITALS: BP 163/52
[2019-01-21 04:30] VITALS: BP 143/53
[2019-01-21 04:42] LABS: BASOPHILS 0.5 % (0-2); EOSINOPHILS 4.6 % (0-7); HEMATOCRIT 25.3 % (36.0-48.0); HEMOGLOBIN 7.9 g/dL (12-16); IMMATURE GRANULOCYTES 1.8 % (0-5); LYMPHOCYTES 13.7 % (15-50); MCH 29.5 pg (26.0-34.0); MCHC 31.2 g/dL (31.0-37.0); MCV 94.4 fL (80.0-100.0); MEAN PLATELET VOLUME 11.6 fL (7.4-10.4); NEUTROPHILS 64.4 % (40-80); RBC 2.68 10x6/uL (4.00-5.40); RDW 14.6 % (11.5-14.5); WBC 6.3 10x3/uL (4.8-10.8)
[2019-01-21 05:09] LABS: PLATELET COUNT 254 10x3/uL (130-400)
[2019-01-21 05:27] LABS: ALBUMIN 1.9 g/dL (3.4-5.0); ANION GAP 11.5 mmol/L (8-16); BILIRUBIN - TOTAL 0.25 mg/dL (0.2-1.3); CALCIUM 7.7 mg/dL (8.5-10.1); CARBON DIOXIDE 28.1 mmol/L (21.0-32.0); CREATININE - SERUM 5.6 mg/dL (0.6-1.3); POTASSIUM - SERUM 3.6 mmol/L (3.5-5.1); PROTEIN - SERUM 5.5 g/dL (6.4-8.2)
--- NOTE | 2019-01-21 05:53 | NUR ---
I have reviewed this patient and I concur with the Shift Assessment completed by the Licensed Practical Nurse today this shift.
--- NOTE | 2019-01-21 07:20 | NUR ---
RECIEVE REPORT. ALERT AND ORIENTED X4. SITTING UP WATCHING TV. DENIES ANY NEEDS. DENIES SOB OR PAIN. CONTINUE PLAN OF CARE AND SAFETY PRECAUTIONS.
[2019-01-21 08:08] VITALS: BP 158/54
--- NOTE | 2019-01-21 08:24 | MORECARE ---
CASE MANAGEMENT DISCHARGE SUMMARY PATIENT: CHARITY DONALD UNIT: [id number] ADM DATE: 01/15/19 AGE: 58 : 56 SEX: F ROOM/BED: D.8029 AUTHOR: EYAL MERINO PHYSICIAN: REFERRING PHYSICIAN: KEN ALMANZA MD DATE OF SERVICE: 01/21/19 Discharge Plan Patient Name: CHARITY DONALD Facility: [facility]:[place] : 1960 Planned Disposition: Home Anticipated Discharge Date: Discharge Date: Expected LOS: Initial Reviewer: [email or web address] Initial Review Date: 01/15/2019 Generated: 01/21/19 9:24 am Comments DCP- Discharge Planning Updated by [email or web address]: Carla Mathias on 01/17/19 7:[address] Patient Name: CHARITY DONALD Admission Status: ER Accout number: [id number] Admission Date: 01-15-2019 : 1960 Admission Diagnosis: Attending: Ken Almanza Current LOS: 2 Anticipated DC Date: Planned Disposition: Home Primary Insurance: [employer] Discharge Planning Comments: CM met with patient to complete initial dc planning assessment. CM educated patient on the CM role and verbal consent given by patient to complete assessment. Patient lives at home with her and daughter where she is independent with her care. At discharge patient plans to return home and feels this is a safe discharge. CM discussed availability of home health, rehab services, and medical equipment. Her family will drive her home. Patient is new to dialysis and will start PD once abd is healed. Patient will need outpatient HD set up in [place]. Patient denied known discharge needs at this time. CM will continue to follow and will assist as needed with dc plans/needs. Financial Advocate: Carla Mathias DCP- Discharge Planning Updated by [email or web address]: Jo Junior on 01/15/19 2:[address] I HAVE SPOKE WITH ESTRELLA GODWIN, CLINICAL LIASON WITH [facility] ABOUT THE PATIENT POSSIBLY CHANGING FROM PD TO HD. SHE HAS CONFIRMED THAT THE PATIENT WILL REQUIRE THE HEPATITIS LABS, ORDERS OBTAINED AND ENTERED. I WILL CONFIRM WHEN I KNOW THAT THE PATIENT WILL FOR SURE NEED PLACEMENT. SHE WILL REACH OUT TO [facility] TO GIVE THEM A HEADS UP. DCPIA - Discharge Planning Initial Assessment Updated by [id number]: Carla Mathias on 01/17/19 8:16 pm * Is the patient Alert and Oriented? Yes * How many steps to enter\exit or inside your home? * PCP JAYRO DEXTER * [facility] * Preadmission Environment Home with Family * ADLs Independent * Equipment Cane * List name and contact numbers for known caregivers / representatives who currently or will assist patient after discharge: DEMETRIUS DONALD - SPOUSE- [phone] * Verbal permission to speak to the caregivers and representatives has been obtained from the patient. Yes * Community resources currently utilized None * Additional services required to return to the preadmission environment? No * Can the patient safely return to the preadmission environment? Yes * Has this patient been hospitalized within the prior 30 days at any hospital? No Last DP export: 01/17/19 7:25 p Patient Name: CHARITY DONALD Page 50885 at 0824 All edits/amendments must be made on the electronic document DICTATION DATE: 01/21/19823 SOLAR RESOURCE ASSESSOR: MYRON 01/21/19823 RPT#: [id number] DC DATE: STATUS: ADM IN [facility] [address] [place] [address] END OF REPORT
[2019-01-21 11:54] VITALS: BP 160/57
[2019-01-21 16:13] VITALS: BP 153/54
[2019-01-21 16:21] LABS: HEMATOCRIT 26.4 % (36.0-48.0); HEMOGLOBIN 8.2 g/dL (12-16)
--- NOTE | 2019-01-21 17:34 | NUR ---
ALERT AND ORIENTED X4. SITTING UP IN BED EATING. WAITING FOR DIALYSIS. CONTINUE PLAN OF CARE AND SAFETY PRECAUTIONS.
[2019-01-21 20:00] VITALS: BP 156/56
--- NOTE | 2019-01-22 00:29 | NUR ---
PATIENT IV TO RIGHT HAND INFILTRATED. IV TIP INTACT. NEW IV TO RIGHT FOREARM 22 G X3 ATTEMPTS.
[2019-01-22 00:30] VITALS: BP 164/58
--- NOTE | 2019-01-22 03:56 | NUR ---
I have reviewed this patient and I concur with the Shift Assessment completed by the Licensed Practical Nurse today this shift.
[2019-01-22 04:30] VITALS: BP 141/52
[2019-01-22 06:04] LABS: BASOPHILS 0.4 % (0-2); EOSINOPHILS 3.2 % (0-7); HEMATOCRIT 27.8 % (36.0-48.0); HEMOGLOBIN 8.7 g/dL (12-16); IMMATURE GRANULOCYTES 3.9 % (0-5); LYMPHOCYTES 13.4 % (15-50); MCH 29.6 pg (26.0-34.0); MCHC 31.3 g/dL (31.0-37.0); MCV 94.6 fL (80.0-100.0); MEAN PLATELET VOLUME 10.9 fL (7.4-10.4); MONOCYTES 12.8 % (2-11); NEUTROPHILS 66.3 % (40-80); RBC 2.94 10x6/uL (4.00-5.40); RDW 14.8 % (11.5-14.5); WBC 7.8 10x3/uL (4.8-10.8)
[2019-01-22 06:07] LABS: PLATELET COUNT 313 10x3/uL (130-400)
[2019-01-22 06:23] LABS: ALBUMIN 2.1 g/dL (3.4-5.0); ANION GAP 14.1 mmol/L (8-16); BILIRUBIN - TOTAL 0.24 mg/dL (0.2-1.3); CALCIUM 8.6 mg/dL (8.5-10.1); CARBON DIOXIDE 27.6 mmol/L (21.0-32.0); PHOSPHOROUS 5.8 mg/dL (2.5-4.9); POTASSIUM - SERUM 3.7 mmol/L (3.5-5.1); PROTEIN - SERUM 5.9 g/dL (6.4-8.2)
--- NOTE | 2019-01-22 06:31 | NUR ---
LABS SHOW GLUCOSE AT 67. PATIENT GIVEN 2 APPLE JUICES WITH 2 PACKETS OF SUGAR.
[2019-01-22 07:35] VITALS: BP 157/56
--- NOTE | 2019-01-22 09:00 | NUR ---
ALERT AND ORIENTED X4. TAKEN TO DIALYSIS VIA WHEELCHAIR. CONTINUE PLAN OF CARE AND SAFETY PRECAUTIONS.
[2019-01-22] MEDS ORDERED: MAXIPIME1 GM PD (09:50)
--- NOTE | 2019-01-22 13:55 | NUR ---
ALERT AND ORIENTED X4. SITTING UP IN BED. PD CATH DRESSING CHANGED. DC RT FA IV TIP INTACT. FSBS 352, TREAT WITH INSULIN ORDERED. FAMILY AT BEDSIDE. DISCHARGE INSTRUCTIONS GIVEN VERBALLY AND WRITTEN. DISCHARGE PAPERS SIGNED ON CHART. ESCORT TO RIDE VIA WHEELCHAIR. REMAINS FREE FROM INJURY.
--- NOTE | 2019-01-23 07:06 | MORECARE ---
CASE MANAGEMENT DISCHARGE SUMMARY PATIENT: CHARITY DONALD UNIT: [id number] ADM DATE: 01/15/19 AGE: 58 : 56 SEX: F ROOM/BED: D.0742 AUTHOR: WILBER,DOC PHYSICIAN: REFERRING PHYSICIAN: KEN ALMANZA MD DATE OF SERVICE: 01/23/19 Discharge Plan Patient Name: CHARITY DONALD Facility: [facility]:[place] : 1960 Planned Disposition: Home Anticipated Discharge Date: 01/22/19 Discharge Date: 01/22/2019 Expected LOS: 7 Initial Reviewer: [email or web address] Initial Review Date: 01/15/2019 Generated: 01/23/19 8:06 am DCP- Discharge Planning Updated by [email or web address]: Carla Mathias on 01/17/19 7:[address] Patient Name: CHARITY DONALD Admission Status: ER Accout number: [id number] Admission Date: 01-15-2019 : 1960 Admission Diagnosis: Attending: Ken Almanza Current LOS: 2 Anticipated DC Date: Planned Disposition: Home Primary Insurance: [employer] Discharge Planning Comments: CM met with patient to complete initial dc planning assessment. CM educated patient on the CM role and verbal consent given by patient to complete assessment. Patient lives at home with her and daughter where she is independent with her care. At discharge patient plans to return home and feels this is a safe discharge. CM discussed availability of home health, rehab services, and medical equipment. Her family will drive her home. Patient is new to dialysis and will start PD once abd is healed. Patient will need outpatient HD set up in [place]. Patient denied known discharge needs at this time. CM will continue to follow and will assist as needed with dc plans/needs. Milk Runner: Carla Mathias DCP- Discharge Planning Updated by [id number]: Jo Junior on 01/15/19 2:[address] I HAVE SPOKE WITH ESTRELLA GODWIN, CLINICAL LIASON WITH [facility] ABOUT THE PATIENT POSSIBLY CHANGING FROM PD TO HD. SHE HAS CONFIRMED THAT THE PATIENT WILL REQUIRE THE HEPATITIS LABS, ORDERS OBTAINED AND ENTERED. I WILL CONFIRM WHEN I KNOW THAT THE PATIENT WILL FOR SURE NEED PLACEMENT. SHE WILL REACH OUT TO [facility] TO GIVE THEM A HEADS UP. DCPIA - Discharge Planning Initial Assessment Updated by [email or web address]: Carla Mathias on 01/17/19 8:16 pm * Is the patient Alert and Oriented? Yes * How many steps to enter\exit or inside your home? * PCP JAYRO DEXTER * Pharm[facility] * Preadmission Environment Home with Family * ADLs Independent * Equipment Cane * List name and contact numbers for known caregivers / representatives who currently or will assist patient after discharge: DEMETRIUS DONALD - SPOUSE- [phone] * Verbal permission to speak to the caregivers and representatives has been obtained from the patient. Yes * Community resources currently utilized None * Additional services required to return to the preadmission environment? No * Can the patient safely return to the preadmission environment? Yes * Has this patient been hospitalized within the prior 30 days at any hospital? No Last DP export: 01/21/19 7:24 a Patient Name: CHARITY DONALD Page 39969 at 0706 All edits/amendments must be made on the electronic document DICTATION DATE: 01/23/19704 APPLIED RESEARCH DIRECTOR: MYRON 01/23/19704 RPT#: [id number] DC DATE:01/22/19 STATUS: DIS IN [facility] [address] [facility] [place] [place] [address] END OF REPORT
[2019-01-27 16:08] LABS: AEROBE ID Final report (())
== END 2019-01-22 13:57 | disposition home or self-care (01) | DRG 919 ==
LOC: D.ER 02:53 → D.M2 03:35 → D.ICU 01-16 18:41 → D.M2 01-17 17:17 → D.SDCHOLD 01-21 12:47 → D.M2 01-22 13:57
PROVIDERS: Family Medicine; Internal Medicine; Radiology Diagnostic Radiology; Surgery; ADMIT Internal Medicine Nephrology; ATTEND Internal Medicine Nephrology
PROC: B5131ZA Fluoroscopy of Right Jugular Veins using Low Osmolar Contrast, Guidance (ICD-10-PCS; 2019-01-15)
PROC: 0JH63XZ Insertion of Tunneled Vascular Access Device into Chest Subcutaneous Tissue and Fascia, Percutaneous Approach (ICD-10-PCS; 2019-01-15)
PROC: 05HM33Z Insertion of Infusion Device into Right Internal Jugular Vein, Percutaneous Approach (ICD-10-PCS; principal; 2019-01-15 15:15)
DX: T85.611A Breakdown (mechanical) of intraperitoneal dialysis catheter, initial encounter (principal); N18.6 End stage renal disease; K65.9 Peritonitis, unspecified; J95.821 Acute postprocedural respiratory failure; I12.0 Hypertensive chronic kidney disease with stage 5 chronic kidney disease or end stage renal disease; Y83.9 Surgical procedure, unspecified as the cause of abnormal reaction of the patient, or of later complication, without mention of misadventure at the time of the procedure; E11.22 Type 2 diabetes mellitus with diabetic chronic kidney disease; Z99.2 Dependence on renal dialysis; E87.5 Hyperkalemia; E11.65 Type 2 diabetes mellitus with hyperglycemia; D63.1 Anemia in chronic kidney disease; B96.89 Other specified bacterial agents as the cause of diseases classified elsewhere

== ENCOUNTER 2019-02-22 08:56 | Day surgery (SDC) | payer MEDICARE, OTHER ==
[~2019-02-22] VITALS: Ht 160 cm; Wt 64.5 kg
[~2019-02-22 08:56] MED LIST changes: +AVAPRO300 MG PO; +MAXIPIME1 GM PD
[2019-02-22 09:27] LABS: BASOPHILS 1.2 % (0-2); EOSINOPHILS 2.6 % (0-7); HEMATOCRIT 35.3 % (36.0-48.0); HEMOGLOBIN 10.9 g/dL (12-16); IMMATURE GRANULOCYTES 0.1 % (0-5); LYMPHOCYTES 18.2 % (15-50); MCH 30.5 pg (26.0-34.0); MCHC 30.9 g/dL (31.0-37.0); MCV 98.9 fL (80.0-100.0); MEAN PLATELET VOLUME 11.2 fL (7.4-10.4); MONOCYTES 6.6 % (2-11); NEUTROPHILS 71.3 % (40-80); RBC 3.57 10x6/uL (4.00-5.40); RDW 15.4 % (11.5-14.5); WBC 7.4 10x3/uL (4.8-10.8)
[2019-02-22 09:33] LABS: INR 1.15 (0.85-1.17); PROTIME 14.2 SECONDS (11.6-15.0)
[2019-02-22 09:34] LABS: PLATELET COUNT 215 10x3/uL (130-400)
[2019-02-22 09:35] LABS: ANION GAP 19.2 mmol/L (8-16); CALCIUM 8.2 mg/dL (8.5-10.1); CARBON DIOXIDE 27.1 mmol/L (21.0-32.0); CREATININE - SERUM 5.8 mg/dL (0.6-1.3); POTASSIUM - SERUM 4.3 mmol/L (3.5-5.1)
[2019-02-22] MEDS ORDERED: CALCIUM 500 +1 EAC3 PO (12:04)
[2019-02-22 12:15] VITALS: BMI 25.2
[2019-02-22 18:13] VITALS: BP 154/53; Ht 160 cm; Wt 64.5 kg
--- NOTE | 2019-02-22 18:50 | NUR ---
PT SITTING UP IN BED VISITING WITH HER FAMILY. THE WOUND VAC ALARM IS GOING OFF SAYING IT IS BLOCKED. THERE IS BLOOD COMING OUT FROM THE BOTTOM OF THE CLEAR DRESSING. REINFORCED THE DRESSING AND PLACED A 4X4 AT THE BOTTOM OF THE DRESSING. THERE IS NO MORE BLEEDING AND THE WOUND VAC IS FUNCTIONING PROPERLY. SHE DENIES NEEDS OR PAIN. HER BED IS LOW AND CALL LIGHT IS WITHIN REACH.
[2019-02-22 20:00] VITALS: BP 145/49
--- NOTE | 2019-02-22 21:20 | NUR ---
THE WOUND VAC ALARM SHOWS THAT THE WOUND VAC IS BLOCKED. THERE IS BLOOD COMING OUT FROM UNDERNEATH THE CLEAR DRESSING. THE PTS GOWN AND LINEN ARE SATURATED WITH BLOOD. DR. CUEVA NOTIFIED AND ORDERS RECIEVED TO REMOVE AND REPLACE THE WOUND VAC DRESSING. SEE MAR FOR DDAVP ORDER. WITH THE ASSISTANCE OF MY CHARGE NURSE, SANTI GONSALEZ, WE CHANGED THE WOUND VAC DRESSING, CREATED A SEAL AND THERE ARE NO SIGNS OF BLEEDING. GAVE HER A BATH AND CHANGED HER LINENS. SHE BEGAN TO FEELING NAUSEATED AND STARTED VOMITTING. GAVE HER PHENERGAN ORDERED. SHE STATES SHE FEELS BETTER. SHE ASKED THAT HER BLOOD SUGAR GET CHECKED. IT IS 360. ORDERS GIVEN BY NAHEED VERDIN TO GIVE INSULIN. SEE MAR.
[2019-02-23] VITALS: BP 123/43
[2019-02-23 04:00] VITALS: BP 118/44
--- NOTE | 2019-02-23 07:38 | NUR ---
REPORT RECIEVED. PT SITTING UP IN BED. A&O. SHE HAS A R HEMOSPLIT AND A R HAND PIV THAT IS SL. SHE IS A L ARM RESERVE. PT HAS A WOUND VAC TO THE ABD. RR EVEN AND UNLABORED. NO DISTRESS NOTED. BED LOCKED AND IN LOWEST POSITION, CALL LIGHT WITHIN REACH. WILL CTM
[2019-02-23 08:16] VITALS: BP 113/41
[2019-02-23 11:47] LABS: BASOPHILS 0.4 % (0-2); EOSINOPHILS 0.1 % (0-7); HEMATOCRIT 29.7 % (36.0-48.0); HEMOGLOBIN 9.1 g/dL (12-16); IMMATURE GRANULOCYTES 0.3 % (0-5); MCH 30.6 pg (26.0-34.0); MCHC 30.6 g/dL (31.0-37.0); MEAN PLATELET VOLUME 11.8 fL (7.4-10.4); MONOCYTES 6.9 % (2-11); NEUTROPHILS 82.3 % (40-80); PLATELET COUNT 226 10x3/uL (130-400); RBC 2.97 10x6/uL (4.00-5.40); RDW 15.7 % (11.5-14.5)
[2019-02-23 12:07] LABS: CALCIUM 8.3 mg/dL (8.5-10.1); CARBON DIOXIDE 22.4 mmol/L (21.0-32.0); CREATININE - SERUM 7.4 mg/dL (0.6-1.3); POTASSIUM - SERUM 5.4 mmol/L (3.5-5.1)
--- NOTE | 2019-02-23 16:16 | MORECARE ---
CASE MANAGEMENT DISCHARGE SUMMARY PATIENT: CHARITY VOGEL UNIT: [id number] ADM DATE: 02/22/19 AGE: 58 : 56 SEX: F ROOM/BED: D.2986 AUTHOR: WILBER,DOC PHYSICIAN: REFERRING PHYSICIAN: ELIZABETH RIVERA MD DATE OF SERVICE: 02/23/19 Discharge Plan Patient Name: CHARITY VOGEL Facility: [facility]:[place] : 1960 Planned Disposition: Home with Home Health Anticipated Discharge Date: Discharge Date: Expected LOS: Initial Reviewer: [email or web address] Initial Review Date: 02/23/2019 Generated: 02/23/19 5:15 pm Comments DCP- Discharge Planning Updated by [id number]: Maddi Vick on 02/23/19 2:[address] Patient Name: CHARITY VOGEL Admission Status: Elective Accout number: [id number] Admission Date: 02-22-2019 : 1960 Admission Diagnosis: Attending: ELIZABETH RIVERA Current LOS: 1 Anticipated DC Date: Planned Disposition: Primary Insurance: MEDICARE A & B Discharge Planning Comments: I SPOKE WITH ELIN AT [facility], SHE IS WORKING ON RELEASING THE WOUND VAC. I WILL CHECK WEB SITE AT 9981 TO SEE IF IT IS COMPLETE. Adjunct Business Instructor: Maddi Vick DCP- Discharge Planning Updated by [id number]: Juliet Kirkpatrick on 02/22/19 7:[address] @1836 contacted Matt Mcgowan [facility] rep @[phone] regarding patient need for home wound vac. Return call and completed [facility] order and faxed. Issac will e-fax Dr. Appiah a Rx for patient's order. CM contacted patient's spouse, Will Vogel #[phone], verified insurance, phone number for contact, [facility]. Patient has never had [facility], so they voiced they had no preference. Contacted [facility], spoke with [facility] service for contact with O/C nurse. @1947 Melissa called back, informed that her agency is able to take this patient and do wound vac dressing changes. Made Melissa aware that the plan is for dc tomorrow 02/23. PCP: Dr. Wayne. [facility] for group home prescriptions. HHS: [facility] #[phone]. Orders faxed to #[phone]. HD is with [facility] on , Sat @11-01. Patient drives herself to and from treatments. Spouse or daughter will drive patient home and tack picker her prescriptions upon dc. CM will assist with further dc needs/plans prn. External Providers [facility] Provider[facility] Next Contact Date: Service Request Date: Service Type: Resolution: Reviewer: Comments: External Provider: [facility] Next Contact Date: Service Request Date: Service Type: Resolution: Reviewer: Comments: External Provider: [facility] Next Contact Date: Service Request Date: Service Type: Resolution: Reviewer: Comments: Patient Name: CHARITY VOGEL Page 04675 at 1616 All edits/amendments must be made on the electronic document DICTATION DATE: 02/23/19 1615 BYPRODUCTS PUMP OPERATOR: MYRON 02/23/19 1615 RPT#: [id number] DC DATE: STATUS: ADM IN [facility] [address] [place] [address] END OF REPORT
--- NOTE | 2019-02-23 16:23 | MORECARE ---
CASE MANAGEMENT DISCHARGE SUMMARY PATIENT: CHARITY VOGEL UNIT: [id number] ADM DATE: 02/22/19 AGE: 58 : 56 SEX: F ROOM/BED: D.1220 AUTHOR: WILBER,DOC PHYSICIAN: REFERRING PHYSICIAN: ELIZABETH RIVERA MD DATE OF SERVICE: 02/23/19 Discharge Plan Patient Name: CHARITY VOGEL Facility: [facility]:[place] : 1960 Planned Disposition: Home with Home Health Anticipated Discharge Date: Discharge Date: Expected LOS: Initial Reviewer: [email or web address] Initial Review Date: 02/23/2019 Generated: 02/23/19 5:22 pm Comments DCP- Discharge Planning Updated by [email or web address]: Maddi Vick on 02/23/19 3:[address] Patient Name: CHARITY VOGEL Admission Status: Elective Accout number: [id number] Admission Date: 02-22-2019 : 1960 Admission Diagnosis: Attending: ELIZABETH RIVERA Current LOS: 1 Anticipated DC Date: Planned Disposition: Primary Insurance: MEDICARE A & B Discharge Planning Comments: I SPOKE WITH ELIN AT [facility], SHE IS WORKING ON RELEASING THE WOUND VAC. I WILL CHECK WEB SITE AT 1530 TO SEE IF IT IS COMPLETE. Brownell Operator: Maddi Vick Appended by Maddi Vick on 02/23/2019 16:18 CDT: I FAXED REFERRAL TO [facility] AND CALLED THE WASHING MACHINE INSTALLER NURSE. SHE IS CHECKING WITH HER ADMIN TO MAKE SURE THEY HAVE THIS PATIENT ON SCHEDULE. VAC DRESSING CHANGE WAS YESTERDAY SO WILL NEED TO BE CHANGED MONDAY, [facility] AWARE. CM WILL FOLLOW AND ASSIST. I ALSO SPOKE WITH [facility] AND FAXED THEM HER INSURANCE INFO, THEY SAID HER SECONDARY WILL COVER THE REMAINING COST, I RELAYED THE MSG TO THE PATIENT AND GAVE HER CONTACT INFO IF ANY QUESTIONS. DCP- Discharge Planning Updated by [email or web address]: Juliet Kirkpatrick on 02/22/19 7:[address] @1356 contacted Matt Mcgowan [facility] rep @[phone] regarding patient need for home wound vac. Return call and completed [facility] order and faxed. Issac will e-fax Dr. Appiah a Rx for patient's order. CM contacted patient's spouse, Will Vogel #[phone], verified insurance, phone number for contact, [facility]. Patient has never had [facility], so they voiced they had no preference. Contacted [facility], spoke with answering service for contact with O/C nurse. @194 Melissa called back, informed that her agency is able to take this patient and do wound vac dressing changes. Made Melissa aware that the plan is for dc tomorrow 02/23. PCP: Dr. Wayne. Pharmacy: [facility], [place] and [facility] for ferry terminal agent prescriptions. HHS: [facility] #[phone]. Orders faxed to #[phone]. HD is with [facility] on , Sat @11-01. Patient drives herself to and from treatments. Spouse or daughter will drive patient home and order picker/assembler her prescriptions upon dc. CM will assist with further dc needs/plans prn. Last DP export: 02/23/19 3:16 p Patient Name: CHARITY VOGEL Page [id number] at 1623 All edits/amendments must be made on the electronic document DICTATION DATE: 02/23/191621 COMPUTER PROGRAMMING SUPERVISOR: MYRON 02/23/191621 RPT#: [id number] DC DATE: STATUS: ADM IN [facility] [address] [place] [address] END OF REPORT
--- NOTE | 2019-02-23 16:30 | NUR ---
I HAVE REVIEWED THIS PATIENT AND I CONCUR WITH THE SHIFT ASSESSMENT COMPLETED BY THE JOURNEYMAN PIPE WELDER TODAY THIS SHIFT
--- NOTE | 2019-02-23 16:57 | NUR ---
DC PAPERWORK GONE OVER AND SIGNED WITH PT. ALL QUESTIONS ANSWERED. PIV REMOVED, CATH TIP FULLY INTACT. PT SWITCHED OVER TO PORTABLE WOUND VAC AND HOSPITAL WOUND VAC PUT IN SOILED UTILITY CLOSET. ALL VALUBLES REMOVED FROM ROOM, PT WHEELED DOWNSTIARS VIA WHEEL CHAIR.
--- NOTE | 2019-02-24 15:28 | MORECARE ---
CASE MANAGEMENT DISCHARGE SUMMARY PATIENT: CHARITY VOGEL UNIT: [id number] ADM DATE: 02/22/19 AGE: 58 : 56 SEX: F ROOM/BED: D.6595 AUTHOR: WILBERDOC PHYSICIAN: REFERRING PHYSICIAN: ELIZABETH RIVERA MD DATE OF SERVICE: 02/24/19 Discharge Plan Patient Name: CHARITY VOGEL Facility: [facility]:[place] : 1960 Planned Disposition: Home with Home Health Anticipated Discharge Date: Discharge Date: 02/23/2019 Expected LOS: 0 Initial Reviewer: [email or web address] Initial Review Date: 02/23/2019 Generated: 02/24/19 4:28 pm Comments DCP- Discharge Planning Updated by [email or web address]: Maddi Vick on 02/23/19 4:[address] Patient Name: CHARITY VOGEL Admission Status: Elective Accout number: [id number] Admission Date: 02-22-2019 : 1960 Admission Diagnosis: Attending: ELIZABETH RIVERA Current LOS: 1 Anticipated DC Date: Planned Disposition: Primary Insurance: MEDICARE A & B Discharge Planning Comments: I SPOKE WITH ELIN AT [facility], SHE IS WORKING ON RELEASING THE WOUND VAC. I WILL CHECK WEB SITE AT 1530 TO SEE IF IT IS COMPLETE. Stamp Mounter: Maddi Vick Appended by Maddi Vick on 02/23/2019 16:18 CDT: I FAXED REFERRAL TO [facility] AND CALLED THE FISH AND GAME CLUB MANAGER NURSE. SHE IS CHECKING WITH HER ADMIN TO MAKE SURE THEY HAVE THIS PATIENT ON SCHEDULE. VAC DRESSING CHANGE WAS YESTERDAY SO WILL NEED TO BE CHANGED MONDAY, [facility] AWARE. CM WILL FOLLOW AND ASSIST. I ALSO SPOKE WITH [facility] AND FAXED THEM HER INSURANCE INFO, THEY SAID HER SECONDARY WILL COVER THE REMAINING COST, I RELAYED THE MSG TO THE PATIENT AND GAVE HER CONTACT INFO IF ANY QUESTIONS. DCP- Discharge Planning Updated by [id number]: Juliet Kirkpatrick on 02/22/19 8:[address] @1836 contacted Matt Mcgowan [facility] rep @[phone] regarding patient need for home wound vac. Return call and completed [facility] order and faxed. Issac will e-fax Dr. Appiah a Rx for patient's order. CM contacted patient's spouse, Will Vogel #[phone], verified insurance, phone number for contact, [facility]. Patient has never had [facility], so they voiced they had no preference. Contacted [facility], spoke with answering service for contact with O/C nurse. @194 Melissa called back, informed that her agency is able to take this patient and do wound vac dressing changes. Made Melissa aware that the plan is for dc tomorrow 02/23. PCP: Dr. Wayne. Pharmacy: [facility], [place] and [facility] for terminal clerk prescriptions. HHS: [facility] #[phone]. Orders faxed to #[phone]. HD is with [facility] on , Sat @11-01. Patient drives herself to and from treatments. Spouse or daughter will drive patient home and brick picker her prescriptions upon dc. CM will assist with further dc needs/plans prn. Last DP export: 02/23/19 4:23 p Patient Name: CHARITY VOGEL Page 81066 at 1528 All edits/amendments must be made on the electronic document DICTATION DATE: 02/24/191526 MANAGER RELIABILITY: MYRON 02/24/191526 RPT#: [id number] DC DATE:02/23/19 STATUS: DIS IN [facility] [address] [place] [address] END OF REPORT
--- NOTE | 2019-03-07 16:51 | OP ---
PATIENT NAME: CHARITY VOGEL MEDICAL RECORD: [id number] :[birth year] LOCATION:[facility] ADMISSION DATE: SURGEON: BRAN CUEVA MD DATE OF OPERATION: 02/22/2019 REFERRED BY: Yemi Rivera MD PREOPERATIVE DIAGNOSES: End-stage renal disease, dependence on hemodialysis, and chronic infected peritoneal dialysis catheter. POSTOPERATIVE DIAGNOSES: End-stage renal disease, dependence on hemodialysis, and chronic infected peritoneal dialysis catheter. OPERATION PERFORMED: Removal of peritoneal dialysis catheter and application of wound VAC dressing. SURGEON: Bran Cueva MD ANESTHESIA: General per AREA ATTENDANT. PREOPERATIVE NOTE: Ms. Vogel is a very nice 58-year-old diabetic female from [place], [place], presently on chronic hemodialysis at the [facility] unit in [place]. She has had a chronic infection for several weeks of her only recently implanted peritoneal dialysis catheter and has a deep cuff abscess on ultrasound. She is brought to the operating room today to remove her catheter. I considered likely to be a candidate for another catheter if her infection clears, perhaps for repeat implantation in 4-6 weeks. DESCRIPTION OF PROCEDURE: Under anesthesia in supine position, the patient was prepped and draped in sterile manner, 2 incisions were made, one at the exit site and the other over the deep cuff insertion site in the rectus sheath. There was purulent matter along the tract. The superficial cuff was exposed and the catheter divided and the external portion discarded. The internal portion was placed on traction and electrocautery used to dissect the deep cuff from the rectus sheath. The remainder of the catheter was removed. There was a good deal of infected chronic granulation tissue there at the rectus sheath and this was sharply curetted and debrided. Hemostasis was obtained with electrocautery. The wounds were irrigated with Ancef and gentamicin solution. They were cultured first for aerobic and anaerobic organisms. The wounds were infiltrated with 0.25% Marcaine, after which a wound VAC dressing was applied with orozco sponge and the settings were 125 mmHg continuous suction. She was then awakened and in stable condition taken back to the recovery area. Plan is for her to be discharged home today to continue antibiotic treatment as per culture results. We will ask home health to see her and change her wound VAC dressing 3 times a week. She will come back to see me in my office probably next week. Blood loss during the operation was about 10 cc, unreplaced. Sponges, instruments, and needles were accounted for. No drain was used beyond the wound VAC dressing. No surgical specimen was submitted for histopathology. TRANSINT:[id number] Voice Confirmation ID: [id number] DOCUMENT ID: [id number] OPERATIVE REPORT [id number] CHARITY VOGEL JAMES MD at 1651 CC: DOMINIK RANDHAWA RN, TANJA DUNCAN and YEMI RIVERA [phone] DICTATION DATE: 03/06/19 1646 TUBE MAN: 03/07/19 0012 [facility] 02/23/19 [id number] [place] [address]
== END 2019-02-23 18:37 | disposition home or self-care (01) ==
LOC: OBSVTIME → D.OPS 08:56 → D.M2 17:58 → D.OPS 18:06 → D.M2 18:08 → OBSVTIME 18:08 → D.M2 18:08 → D.OPS 02-23 18:37
PROVIDERS: Internal Medicine; Surgery; ATTEND Internal Medicine Nephrology
PROC: 0WPG03Z Removal of Infusion Device from Peritoneal Cavity, Open Approach (ICD-10-PCS; principal; 2019-02-22 14:00)
DX: T85.71XA Infection and inflammatory reaction due to peritoneal dialysis catheter, initial encounter (principal); N18.6 End stage renal disease; I12.0 Hypertensive chronic kidney disease with stage 5 chronic kidney disease or end stage renal disease; Y83.9 Surgical procedure, unspecified as the cause of abnormal reaction of the patient, or of later complication, without mention of misadventure at the time of the procedure; Z99.2 Dependence on renal dialysis; E10.22 Type 1 diabetes mellitus with diabetic chronic kidney disease

== ENCOUNTER 2019-06-14 05:49 | Day surgery (SDC) | payer MEDICARE, OTHER ==
[~2019-06-14] VITALS: Ht 160 cm; Wt 63.6 kg
[2019-06-14 06:14] LABS: BASOPHILS 0.9 % (0-2); EOSINOPHILS 3.4 % (0-7); HEMATOCRIT 36.3 % (36.0-48.0); HEMOGLOBIN 11.6 g/dL (12-16); IMMATURE GRANULOCYTES 0.2 % (0-5); LYMPHOCYTES 35.7 % (15-50); MCV 100.3 fL (80.0-100.0); MEAN PLATELET VOLUME 11.7 fL (7.4-10.4); MONOCYTES 6.6 % (2-11); NEUTROPHILS 53.2 % (40-80); PLATELET COUNT 215 10x3/uL (130-400); RBC 3.62 10x6/uL (4.00-5.40); WBC 5.6 10x3/uL (4.8-10.8)
[2019-06-14 06:30] LABS: INR 0.93 (0.85-1.17); PROTIME 12.4 SECONDS (11.6-15.0)
[2019-06-14 06:31] LABS: ANION GAP 14.1 mmol/L (8-16); CALCIUM 9.4 mg/dL (8.5-10.1); CARBON DIOXIDE 30.3 mmol/L (21.0-32.0); CREATININE - SERUM 3.9 mg/dL (0.6-1.3); POTASSIUM - SERUM 4.4 mmol/L (3.5-5.1)
[2019-06-14 07:01] VITALS: BMI 24.8
[2019-06-14 12:33] VITALS: BP 148/54
--- NOTE | 2019-06-14 13:00 | NUR ---
NEW PATIENT ADMIT FROM SURGERY VIA STRETCHER ACCOMPANIED BY SURGERY TEAM PERSONNEL AND SPOUSE. PATIENT TRANSFERRED TO HOSPITAL BED EASILY. PATIENT IS AWAKE, ALERT AND ORIENTED X 4. PATIENT VS STABLE. PATIENT DENIES ANY NEEDS OR PAIN. RT IV SL. PATIENT HAS SEVERAL INCISIONS TO ABD WITH DRSG C/D/I. ABD BINDER IN PLACE. ORIENTED PATIENT TO ROOM AND CALL LIGHT. WILL CONTINUE WITH PLAN OF CARE. SR UP X 2 BED IN LOW POSITION AND CALL LIGHT IN REACH.
[2019-06-14 14:51] VITALS: BP 126/44; Ht 160 cm; Wt 63.6 kg
[2019-06-14 16:26] VITALS: BP 131/50
--- NOTE | 2019-06-14 19:29 | NUR ---
RECEIVED REPORT, WILL ASSUME CARE OF PT, DENIES ANY NEEDS, BED IS LOW, SRX2, CALL LIGHT IN REACH, AT BEDSIDE, WILL CONTINUE PLAN OF CARE
[2019-06-14 20:00] VITALS: BP 105/41
[2019-06-15] VITALS: BP 124/53
[2019-06-15 04:00] VITALS: BP 116/55
[2019-06-15 05:38] LABS: BASOPHILS 0.5 % (0-2); HEMATOCRIT 32.5 % (36.0-48.0); HEMOGLOBIN 10.1 g/dL (12-16); IMMATURE GRANULOCYTES 0.1 % (0-5); LYMPHOCYTES 20.4 % (15-50); MCH 31.6 pg (26.0-34.0); MCHC 31.1 g/dL (31.0-37.0); MCV 101.6 fL (80.0-100.0); MEAN PLATELET VOLUME 11.8 fL (7.4-10.4); MONOCYTES 8.3 % (2-11); NEUTROPHILS 68.7 % (40-80); PLATELET COUNT 221 10x3/uL (130-400); RDW 12.4 % (11.5-14.5)
[2019-06-15 05:56] LABS: ANION GAP 12.3 mmol/L (8-16); CALCIUM 8.8 mg/dL (8.5-10.1); CARBON DIOXIDE 28.7 mmol/L (21.0-32.0)
[2019-06-15 06:01] LABS: CREATININE - SERUM 5.1 mg/dL (0.6-1.3)
--- NOTE | 2019-06-15 06:19 | NUR ---
PT CHECK OWN BS-50, PROVIDE APPLE SANDHYA MCKENZIE,PT BS NOW 66
--- NOTE | 2019-06-15 06:50 | NUR ---
I have reviewed this patient and I concur with the Shift Assessment completed by the Licensed Practical Nurse today this shift.
--- NOTE | 2019-06-15 07:56 | NUR ---
REPORT RECEIVED FROM INDUSTRIAL ENGINEERING ANALYST AND PATIENT CARE ASSUMED. PATIENT LAYING IN BED ON BACK AWAKE, ALERT AND ORIENTED X 4. PATIENT DENIES ANY NEEDS OR PAIN. PATIENT IS STABLE AND VSS. WILL CONTINUE WITH PLAN OF CARE. SR UP X 2 BED IN LOW POSITION AND CALL LIGHT IN REACH.
--- NOTE | 2019-06-15 10:30 | NUR ---
PATIENT IS STABLE AND VSS. PATIENT DENIES ANY PAIN OR NEEDS. PATIENT TO DIALYSIS VIA HOSPITAL BED ACCOMPANIED BY HOSPITAL PERSONNEL.
--- NOTE | 2019-06-15 16:47 | NUR ---
PATIENT IS STABLE AND VSS. PATIENT DENIES ANY NEEDS OR PAIN. ORDERS RECEIVED FOR DC. WRITTEN AND VERBAL INSTRUCTIONS GIVEN TO PATIENT AND SPOUSE. BOTH VERBALIZED UNDERSTANIDNG. PATIENT SIGNED DC ORDERS. IV DCD WITHOUT DIFFICULTY WITH ENTIRE CATHETER INTACT. PATIENT TO FRONT DOOR VIA WC TO PRIVATE VEHICLE DRIVEN BY SPOUSE.
--- NOTE | 2019-06-19 17:00 | OP ---
PATIENT NAME: CHARITY VOGEL MEDICAL RECORD: [id number] :56 LOCATION:[facility] ADMISSION DATE: SURGEON: BRAN CUEVA MD DATE OF OPERATION: 06/14/[address] Rivera. PREOPERATIVE DIAGNOSIS: End-stage renal disease, diabetes, and hypertension. POSTOPERATIVE DIAGNOSES: End-stage renal disease, diabetes, hypertension, anterior abdominal wall incisional hernia without obstruction and without strangulation or incarceration. OPERATION PERFORMED: Laparoscopy with enterolysis and implantation of a new peritoneal dialysis catheter and also open mesh repair of right paramedian lower abdominal incisional hernia and also laparoscopic omentopexy. SURGEON: Bran Cueva MD ANESTHESIA: General endotracheal per CRIME SCENE SPECIALIST. PREOPERATIVE NOTE: Ms. Vogel is a very nice 58-year-old diabetic white female patient from [place], [place], [place] of [place]. She is on chronic hemodialysis at present. Back in the fall of last year, I removed her peritoneal dialysis catheter due to infection. She is returned to the operating room today to implant another. Under general endotracheal anesthesia in supine position, the patient was prepped and draped in sterile manner. A Woods catheter was inserted and removed at the end of the operation. The abdomen was accessed with a 5 mm diameter port with a 5 mm laparoscope within it through a small incision in the left upper quadrant. Pneumoperitoneum was established with carbon dioxide. The patient had been previously marked on the abdominal skin as 2 locations for the deep rectus cuff and the skin exit site and we had planned to use a Flex-Neck Classic coiled dialysis catheter from [facility]. I again measured on the abdominal wall and determine the proper location. This did coincide with the outpatient markings. I placed two 5 mm ports, one in the right upper quadrant, one in the left lower quadrant and used these with a Harmonic scalpel to lyse adhesions of small bowel and sigmoid colon in the pelvis and to mobilize a large lappet of omentum from the pelvis. I performed an omentopexy tacking the omentum to the anterior abdominal wall in the right upper quadrant with two 0 Vicryl sutures placed with a Dragan-Miles suture passer. The patient was found to have a fairly large incisional hernia at the site of the previous catheter intrarectus and a retroperitoneal tunnel. There was no incarceration and strangulation or problems like that, but is needed to be repaired. There was a fairly large hernia sac present, which later was demonstrated to be within the rectus sheath itself. An open repair from the front was conducted through a paramedian incision. Subcutaneous tissues were dissected with electrocautery and flaps raised as needed. The sac was entered and this was made a much easier due to insufflation of the abdominal cavity. The margins of the hernia defect were outlined. A primary fascial repair was performed with running 0 Prolene suture and this was further reinforced with an anterior onlay Prolene polypropylene mesh patch, which was also sutured with continuous running 0 Prolene. The wound was irrigated with Ancef/gentamicin solution and infiltrated with 0.25% Marcaine with epinephrine. OPERATIVE REPORT [id number] CHARITY VOGEL During this hernia procedure, I did extend to the fascial defect enough so I could insert my hand and I delivered a small intestine through this incision and inspected the small bowel from ligament of Treitz to the ileocecal valve and found no evidence of perforation. I had been concerned about the Harmonic scalpel might have damaged the bowel during the enterolysis earlier, but there was no evidence of that on my direct inspection. The bowel was returned to the peritoneal cavity obviously prior to the completion of the hernia repair. I then made a vertical incision to the left of the midline at the site of the previous marking and carried this down to the anterior rectus sheath. At the site for the new catheter insertion and a proposed retro fascial location of the deep cuff, I placed a pursestring suture of 0 Vicryl. The underlying rectus muscle was infiltrated with 0.25% Marcaine with epinephrine. I then used the [employer] introducer to beaulieu the anterior rectus sheath and create an intrarectus and preperitoneal tunnel through which I then inserted a Flex-Neck Classic Merit standard adult peritoneal dialysis catheter. This reached very nicely down into the pelvis at the desired level. The Dacron felt cuff was reduced below the rectus sheath and the pursestring suture tied. The catheter was then flushed with saline to demonstrate that there was no resistance due to that pursestring and there was none. The catheter was then placed in a subcutaneous tunnel, which curved laterally to an exit site, which was preplanned in the left upper quadrant above the level of the umbilicus. The tract was gentle curvature and the [employer] tunneling device was used so that the skin incision was of the perfect size for snug fit on the catheter. The catheter was then accessed and flushed with saline. It was then attached to a transfer set and then 1000 cc of sterile saline IV fluid was run into the abdomen. The patient was taken out of Trendelenburg position and the fluid then allowed to run out back into the IV bag demonstrating good catheter function. The fluid was cultured for aerobic and anaerobic organisms also. The catheter itself was then hep locked, clamped, and capped with a new Betadine cap on the transfer set. The abdomen was then reexamined with the laparoscope and there was no evidence of any injury to any of the intra-abdominal organs particularly the small bowel or colon. The omentopexy was in good position as was the dialysis catheter. The ports and laparoscope were removed. The wounds were infiltrated with Marcaine. The laparoscopic incisions were closed with interrupted inverted 3-0 Vicryl. The paramedian incisions were each closed with interrupted inverted 3-0 Vicryl and then running intracuticular 4-0 Stratafix and Dermabond glue. They were dressed with Maxorb Ag, Tegaderm, and Cavilon skin prep. The catheter exit site itself was dressed with a chlorhexidine Biopatch and further gauze and a bordered adhesive dressing. The other incisions were dressed with Tegaderm and Cavilon skin prep. The patient awakened from her anesthetic, was then in stable condition taken to the recovery room. Blood loss during the operation was minimal, maybe 5 cc. None was replaced. Sponges, instruments, and needles were accounted for. No drain was used and no surgical specimen was submitted for histopathology. A specimen of saline irrigation was sent for culture and sensitivity. In the recovery room, the patient has a fairly productive cough and is in considerable discomfort due to the abdominal incisions and I believe that especially considering how far away she lives she needs to remain here in the hospital and at least overnight observation. If all goes well, she can have dialysis here in the morning and then go home. She will be placed on all of her OPERATIVE REPORT [id number] CHARITY VOGEL same medications, diabetic renal diet, etc. I will be seeing her back in my office in probably about 1-2 weeks and I expect she can have her catheter flushed in the next week or two in [place]. Unless there is a wound problem, she should be able to begin her peritoneal dialysis training in about 4 weeks. We have to wait a little longer than I would like due to the hernia repair. TRANSINT:[id number] Voice Confirmation ID: [id number] DOCUMENT ID: [id number] cc: [facility] [place]. BRAN CUEVA MD at 1700 CC: ELIZABETH RIVERA [id number] DICTATION DATE: 06/14/19 111 WATER SERVER: 06/14/198 [facility] 06/15/19 [address] [place] [address]
== END 2019-06-15 16:52 | disposition home or self-care (01) ==
LOC: D.OPS 05:49 → D.M2 11:34 → D.OPS 12:00
PROVIDERS: Surgery; ATTEND Internal Medicine Nephrology
DX: N18.6 End stage renal disease (principal); E10.21 Type 1 diabetes mellitus with diabetic nephropathy; I10 Essential (primary) hypertension; K43.2 Incisional hernia without obstruction or gangrene; T85.71XD Infection and inflammatory reaction due to peritoneal dialysis catheter, subsequent encounter; Z99.2 Dependence on renal dialysis